=== PATIENT | male | born 1960 | race Two or more races ===

== ENCOUNTER 2025-04-06 15:32 | Inpatient (IN) | payer OTHER, MEDICAID ==
[~2025-04-06] VITALS: Ht 175.3 cm; Wt 73.0 kg
[2025-04-06] MEDS: SODIUM CHLORIDE 0.9% 1,000 ML IV SCH (09:13)
--- NOTE | 2025-04-06 16:40 | ED.PDOC ---
History of Present Illness HPI Comments 64-year-old male presents to the ER in a wheelchair with a chief complaint of flu-like symptoms. Patient has been having shakiness, and chills since yesterday. Denies any other symptoms at this time. Denies fever, N/V/D, SOB, CP. No other associated symptoms, modifiers, recent injuries or sick contacts pr esent at this time. Chief Complaint: Flu like Time Seen by MD: 16:05 Reviewed Notes: Nurses Notes, Medications, Allergies Allergies: Coded Allergies: NO KNOWN ALLERGIES (Unverified , 04/06/25) Information Source: Patient Mode of Arrival: Wheelchair Severity: Moderate Timing: Hours Duration: Since onset, Hours Prehospital treatment: None Past Medical History PAST MEDICAL HISTORY: Denies Surgical History: Denies all surgeries Family History Family History: Reviewed,noncontributory to illness, Unknown Social History Smoker: Non-Smoker Alcohol: Denies ETOH Use Drugs: Denies Drug Use Lives In: Home Constitutional: reports: chills, others (Shakiness); denies: diaphoresis, fatigue, fever, malaise, sweats, weakness EENTM: denies: blurred vision, double vision, ear bleeding, ear discharge, ear drainage, ear pain, ear ringing, eye pain, eye redness, hearing loss, mouth pain, mouth swelling, nasal discharge, nose bleeding, nose congestion, nose pain, photophobia, tearing, throat pain, throat swelling, voice changes, others Respiratory: denies: cough, hemoptysis, orthopnea, SOB at rest, shortness of breath, SOB with excertion, stridor, wheezing, others Cardiovascular: denies: chest pain, dizzy spells, diaphoresis, Dyspnea on exertion, edema, irregular heart beat, left arm pain, lightheadedness, palpitations, PND, syncope, others Gastrointestinal: denies: abdomen distended, abdominal pain, blood streaked bowels, constipated, diarrhea, dysphagia, difficulty swallowing, hematemesis, melena, nausea, poor appetite, poor fluid intake, rectal bleeding, rectal pain, vomiting, others Genitourinary: denies: burning, dysuria, flank pain, frequency, hematuria, incontinence, penile discharge, penile sore, pain, testicle pain, testicle swelling, urgency, others Neurological: denies: dizziness, fainting, headache, left sided numbness, left sided weakness, numbness, paresthesia, pre-existing deficit, right sided numbness, right sided weakness, seizure, speech problems, tingling, tremors, weakness, others Musculoskeletal: denies: back pain, gout, joint pain, joint swelling, muscle pain, muscle stiffness, neck pain, others Integumetry: denies: bruises, change in color, change in hair/nails, dryness, laceration, lesions, lumps, rash, wounds, others Allergic/Immunocompromised: denies: Difficulty Healing, Frequent Infections, Hives, Itching, others Hematologic/Lymphatic: denies: anemia, blood clots, easy bleeding, easy bruising, swollen glands, others Endocrine: denies: excessive hunger, excessive sweating, excessive thirst, excessive urination, flushing, intolerance to cold, intolerance to heat, unexplained weight gain, unexplained weight loss, others Psychiatric: denies: anxiety, bipolar disorder, depression, hopeless, panic disorder, schizophrenia, sleepless, suicidal, others All Other Systems: Reviewed and Negative Physical Exam Exam Comments Ill-appearing General Appearance: No Apparent Distress, Normal HEENT: Normal ENT Inspection, Pharynx Normal, TMs Normal Neck: Full Range of Motion, Non-Tender, Normal, Normal Inspection Respiratory: Chest Non-Tender, Lungs Clear, No Accessory Muscle Use, No Respiratory Distress, Normal Breath Sounds Cardiovascular: No Edema, No JVD, No Murmur, No Gallop, Normal Peripheral Pulses, Regular Rate/Rhythm Breast Exam: Deferred Gastrointestinal: No Organomegaly, Non Tender, No Pulsatile Mass, Normal Bowel Sounds, Soft Genitalia: Deferred Pelvic: Deferred Rectal: Deferred Extremities: No calf tenderness, Normal capillary refill, Normal inspection, Normal range of motion, Non-tender, No pedal edema Musculoskeletal : Apperance: Normal Neurologic: Alert, mandolin repairer II-XII nml as Tested, No Motor Deficits, Normal Affect, Normal Mood, No Sensory Deficits Cerebellar Function: Normal Reflexes: Normal Skin: Dry, Normal Color, Warm Lymphatic: No Adenopathy Was a procedure done? Was a procedure done?: No Differential Dx Considerations may include: ACS, CVA, viral syndrome, electrolyte abnormality, infectious etiology X-Ray, Labs, Meds, VS Vital Signs Date Time Temp Pulse Resp B/P (MAP) Pulse Ox O2 Delivery O2 Flow Rate FiO2 11/16/25 18:17 98.9 50 19 133/77 (95) 99 98.9 04/06/25 15:34 98.0 58 18 147/75 97 98.0 Lab Test 04/06/25 17:34 04/06/25 16:27 Range/Units Troponin I High Sensitivity 35 36 </=54 ng/L White Blood Count 8.6 4.4-10.8 10^3/uL Red Blood Count 3.74 L 4.5-5.90 10^6/uL Hemoglobin 13.1 L 13.5-17.5 g/dL Hematocrit 38.5 L 41.0-53.0 % Mean Corpuscular Volume 103.0 H 80.0-100.0 fL Mean Corpuscular Hemoglobin 35.1 H 28.0-32.0 pg Mean Corpuscular Hemoglobin Concent 34.1 32.0-36.0 g/dL Red Cell Distribution Width 12.8 11.8-14.3 % Platelet Count 357 140-450 10^3/uL Mean Platelet Volume 8.9 6.9-10.8 fL Neutrophils (%) (Auto) 76.4 37.0-80.0 % Lymphocytes (%) (Auto) 17.4 10.0-50.0 % Monocytes (%) (Auto) 5.5 0.0-12.0 % Eosinophils (%) (Auto) 0.1 0.0-7.0 % Basophils (%) (Auto) 0.6 0.0-2.0 % Neutrophils # (Auto) 6.6 1.6-8.6 10 ^3/uL Lymphocytes # (Auto) 1.5 0.4-5.4 10 ^3/uL Monocytes # (Auto) 0.5 0-1.3 10 ^3/uL Eosinophils # (Auto) 0 0-0.8 10 ^3/uL Basophils # (Auto) 0.1 0-0.2 10 ^3/uL Nucleated Red Blood Cells 0.0 % Sodium Level 141 136-145 mmol/L Potassium Level 4.6 3.5-5.1 mmol/L Chloride Level 109 H 98-107 mmol/L Carbon Dioxide Level 20 20-31 mmol/L Anion Gap 12 5-15 Blood Urea Nitrogen 41 H 9-23 mg/dL Creatinine 2.42 H 0.700-1.30 mg/dL Glomerular Filtration Rate Calc 29 >90 mL/min BUN/Creatinine Ratio 16.9 10.0-20.0 Serum Glucose 97 74-106 mg/dL Lactic Acid Level 2.9 *H 0.4-2.0 mmol/L Calcium Level 10.2 8.7-10.4 mg/dL Time of 1ST Reevaluation: 16:35 Reevaluation 1ST: Unchanged Patient Education/Counseling: Diagnosis, Treatment, Prognosis Family Education/Counseling: No Family Present SEPSIS Sepsis Screen Date sepsis recognized/suspect: Apr 06, 2025 Time Sepsis recognized/suspect: 1535 Recent Procedure: No On Antibiotic Therapy: No Respiratory Rate >20: No Heart Rate >90: No Temp<36 C (96.8 F) or >38.3 C: No SBP <90 or MAP <65 mmHG: No New Acute Mental Status Change: No Is the patient on CPAP, BIPAP,: No Physician Orders Urinalysis (04/06/25 16:07) Chest Portable (04/06/25 16:07) Blood Culture (04/06/25 16:07) Troponin-I Hs (04/06/25 19:07) Vital Signs Date Time Temp Pulse Resp B/P (MAP) Pulse Ox O2 Delivery O2 Flow Rate FiO2 04/06/25 18:17 98.9 50 19 133/77 (95) 99 98.9 04/06/25 15:34 98.0 58 18 147/75 97 98.0 Laboratory Tests Test 04/06/25 16:27 Lactic Acid Level 2.9 mmol/L (0.4-2.0) *H White Blood Count 8.6 10^3/uL (4.4-10.8) Departure 1 Departure Time of Disposition: 18:29 (Patient with generalized weakness fatigue concerning for household viral syndrome. Patient also electrolyte abnormalities. Patient with an abnormal chest x-ray. He is also suffering from likely encephalopathy.) Impression: Primary Impression: Encephalopathy Additional Impressions: Generalized weakness Near syncope Disposition: ADMITTED INPATIENT Admit to: Med Surg Condition: Serious Critical Care Note Critical Care Time?: No Stability Stability form required: No I personally scribed for FAITH COBB MD ([email or web address]) on 04/06/25 at 16:40. Electronically submitted by Marc Aranda ([email or web address]). FAITH COBB MD Apr 06, 2025 16:40
--- NOTE | 2025-04-06 16:47 | DVH ---
CHEST RADIOGRAPH REASON FOR EXAM: weakness COMPARISON: None TECHNIQUE: One view of the chest is provided FINDINGS: The cardiomediastinal silhouette is within normal limits for size. There are surgical changes in the mediastinum. There is a curvilinear edge projecting over the right upper lung zone from the superior mediastinum that may be related to prior surgery although ascending aortic aneurysm and mediastinal mass are considerations. There is aortic atherosclerosis. IMPRESSION: There is a curvilinear edge projecting over the right upper lung zone from the superior mediastinum that may be related to prior surgery although ascending aortic aneurysm and mediastinal mass are considerations. Comparison with prior studies may be helpful if available. Consider contrast-enhanced chest CT.
[2025-04-06 17:08] LABS: Nucleated Red Blood Cells % 0.0 %
[2025-04-06 17:09] LABS: Hematocrit 38.5 % (41.0-53.0); Hemoglobin 13.1 g/dL (13.5-17.5); Mean Corpuscular Hemoglobin 35.1 pg (28.0-32.0); Mean Corpuscular Volume 103.0 fL (80.0-100.0)
[2025-04-06 17:13] LABS: Chloride 109 mmol/L (98-107); Potassium 4.6 mmol/L (3.5-5.1); Sodium 141 mmol/L (136-145)
[2025-04-06 17:14] LABS: Anion Gap 12 (5-15); Calcium 10.2 mg/dL (8.7-10.4); Carbon Dioxide 20 mmol/L (20-31)
[2025-04-06 17:19] LABS: BUN/Creatinine Ratio 16.9 (10.0-20.0); Glucose 97 mg/dL (74-106)
[2025-04-06 17:22] LABS: Blood Urea Nitrogen 41 mg/dL (9-23)
[2025-04-06 17:24] LABS: Lactic Acid w/Reflex 2.9 mmol/L (0.4-2.0)
[2025-04-06] MEDS: ACETAMINOPHEN 325 MG TAB PO ONE (18:58)
[2025-04-06] MEDS: ONDANSETRON HCL 4 MG/2 ML VIAL IV ONE (18:58)
[2025-04-06] MEDS: SODIUM CHLORIDE 0.9% 1,000 ML IV ONE (19:00)
--- NOTE | 2025-04-06 19:03 | DVH ---
EXAM: CT HEAD WITHOUT CONTRAST INDICATION: ams TECHNIQUE: CT of the head without intravenous contrast. Radiation Dose : 1. Head: CT Dose: CTDI volume is 53.99 mGy. Dose-length product is 971.88 mGy*cm The dose indicators for CT are the volume Computed Tomography (CT) Dose Index (CTDIvol) and the Dose Length Product (DLP), and are measured in units of mGy and mGy-cm, respectively. These indicators are not patient dose, but values generated from the CT scanner acquisition factors. The report includes radiation exposure data for exposures received during this examination. COMPARISON: None FINDINGS: There is no evidence of acute intracranial hemorrhage, extra-axial collection, mass effect, midline shift, herniation or hydrocephalus. The ventricles, sulci and cisterns are age appropriate. The lawler-white differentiation is intact. Patchy periventricular and subcortical white matter hypoattenuation is nonspecific but may be related to small vessel ischemic disease. Generalized brain atrophy. The visualized paranasal sinuses and mastoid air cells are clear. The surrounding soft tissues and osseous structures are unremarkable. IMPRESSION: No acute intracranial abnormality. Atrophy and chronic small-vessel ischemic changes Radiation optimization: All CT scans at this facility use at least one of these dose optimization techniques: automated exposure control mA and/or kV adjustment per patient size (includes targeted exams where dose is matched to clinical indication) or iterative reconstruction.
--- NOTE | 2025-04-06 19:50 | DVH ---
Procedure: CT CHEST WITHOUT CONTRAST Study Date and Requested Time: 04/06/2025 06:37 PM History: better evaluate xray findings Comparison: Chest radiograph 04/06/2025 Dose: CTDI: 15.64 mGy DLP: 631.71 mGycm Technique: Multiplanar images obtained through the chest without contrast Findings: Thyroid gland is unremarkable. Heart size is within normal limits. The left ventricular wall appears slightly more hyperdense compared to the blood pull which may be seen with anemia. Slight irregularity of the left ventricular wall. Postsurgical changes coronary artery bypass. No aortic aneurysm. Pulmonary trunk is normal in size. No significant mediastinal lymphadenopathy. No pneumothorax, pleural effusion or focal airspace consolidation. Bilateral lower lobe, and bilateral upper lobe atelectasis. The finding on radiograph appears to represent an azygous fissure. Left upper lobe bleb is noted. Soft tissues unremarkable. Diffuse demineralization. Multilevel moderate degenerative changes of the thoracic spine multilevel Anterior bridging osteophytes. Midline sternotomy wires are noted. Cholelithiasis without evidence for acute cholecystitis. Gastric wall thickening. Mild hypoplasia of the left adrenal gland. 2.8 cm left renal hypodense lesion which does not measure simple fluid. Impression: Limited noncontrast imaging. The finding on radiograph appears to represent an azygous fissure There appears to be slight hyperdense appearance of the left ventricular wall compared to the blood pole which may be seen with anemia. Slight irregularity of the left ventricular wall. Contrast-enhanced imaging should be considered for further evaluation. Gastric wall thickening correlate for gastritis/neoplasm. 2.8 cm Left renal hypodense lesion with does not measure simple fluid. Renal ultrasound is recommended for further evaluation. Cholelithiasis without evidence for acute cholecystitis.
--- NOTE | 2025-04-06 20:36 | ECG ---
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
--- NOTE | 2025-04-06 20:46 | DVHHPRES ---
History of Present Illness Resident Creating Document: RIKY WARD RESIDENT History of Present Illness This is a 64-year-old male with past medical history of hypertension, AFib on Eliquis, Parkinson disease presented to the ED via EMS from assisted living facility with a chief complaint of progressive altered mental status prior to this visit . The patient was a poor historian and not able to answer any of the questions, just mentioned he was not feeling well, confused, forgetful that prompted this visit. He denies fever, chills, shortness of breath, chest pain, dizziness, dysuria or any change in bowel and bladder habit. Cardiovascular: AFIB, HTN Past Medical History Hypertension, AFib, Parkinson disease Past Surgical History Denies any surgical history Family History Noncontributory Past Social History Lives in a assisted living facility Nonsmoker, nonalcoholic and never tried any drugs Review of Systems Constitutional: Yes: Weakness; No: Fever, Chills, Sweats, Malaise, Other Eyes: No: Pain, Vision change, Conjunctivae inflammation, Eyelid inflammation, Other, Redness ENT: No: Ear pain, Ear discharge, Nose pain, Nose discharge, Nose congestion, Mouth pain, Mouth swelling, Throat pain, Throat swelling, Other Respiratory: No: Cough, Dry, Shortness of breath, SOB with excertion, Wheezing, Hemoptysis, Pleuritic Pain, Sputum, Wheezing, Other Cardiovascular: No: Chest Pain, Palpitations, Orthopnea, Paroxysmal Noc. Dyspnea, Edema, Lt Headedness, Other Gastrointestinal: No: Nausea, Vomiting, Abdominal Pain, Diarrhea, Constipation, Melena, Hematochezia, Other Genitourinary: No Dysuria, No Frequency, No Incontinence, No Hematuria, No Retention, No Other Musculoskeletal: No: other, neck pain, shoulder pain, arm pain, back pain, hand pain, leg pain, foot pain Skin: No: Rash, Lesions, Jaundice, Bruising, Other Neurological: Weakness; No: Numbness, Incoordination, Change in speech, Confusion, Seizures, Other Allergies: Coded Allergies: NO KNOWN ALLERGIES (Unverified , 04/06/25) Exam Vital Signs Vital Signs Date Time Temp Pulse Resp B/P (MAP) Pulse Ox O2 Delivery O2 Flow Rate FiO2 04/06/25 18:17 98.9 50 19 133/77 (95) 99 98.9 Exam Physical examination: General Appearance: Alert, Oriented X1 to 2, Cooperative, No acute distress HEENT: Atraumatic, PERRLA, EOMI, Mucous membrane moist/pink Respiratory: Clear to auscultation, Normal air movement Cardiovascular: Regular rate, Normal S1, Normal S2, No murmurs, no chest wall tenderness Abdominal: Normal bowel sounds, Soft, No tenderness, No hepatospenomegaly, No masses Extremities: No clubbing, No cyanosis, No edema, Normal pulses, No tenderness/swelling Skin: No rashes, No breakdown, No significant lesion Neuro: wheel chair bound, Normal speech, Strength at 5/5 X4 ext, Normal tone, Sensation intact, Cranial nerves 3-12 NL, Reflexes 2+ Psych/Mental Status: Mental status NL, Mood NL Labs/Xrays Labs Test 04/06/25 19:30 04/06/25 18:21 04/06/25 16:27 Range/Units Lactic Acid Level 1.8 0.4-2.0 mmol/L White Blood Count 8.6 4.4-10.8 10^3/uL Red Blood Count 3.74 L 4.5-5.90 10^6/uL Hemoglobin 13.1 L 13.5-17.5 g/dL Hematocrit 38.5 L 41.0-53.0 % Mean Corpuscular Volume 103.0 H 80.0-100.0 fL Mean Corpuscular Hemoglobin 35.1 H 28.0-32.0 pg Mean Corpuscular Hemoglobin Concent 34.1 32.0-36.0 g/dL Red Cell Distribution Width 12.8 11.8-14.3 % Platelet Count 357 140-450 10^3/uL Mean Platelet Volume 8.9 6.9-10.8 fL Neutrophils (%) (Auto) 76.4 37.0-80.0 % Lymphocytes (%) (Auto) 17.4 10.0-50.0 % Monocytes (%) (Auto) 5.5 0.0-12.0 % Eosinophils (%) (Auto) 0.1 0.0-7.0 % Basophils (%) (Auto) 0.6 0.0-2.0 % Neutrophils # (Auto) 6.6 1.6-8.6 10 ^3/uL Lymphocytes # (Auto) 1.5 0.4-5.4 10 ^3/uL Monocytes # (Auto) 0.5 0-1.3 10 ^3/uL Eosinophils # (Auto) 0 0-0.8 10 ^3/uL Basophils # (Auto) 0.1 0-0.2 10 ^3/uL Nucleated Red Blood Cells 0.0 % Sodium Level 141 136-145 mmol/L Potassium Level 4.6 3.5-5.1 mmol/L Chloride Level 109 H 98-107 mmol/L Carbon Dioxide Level 20 20-31 mmol/L Anion Gap 12 5-15 Blood Urea Nitrogen 41 H 9-23 mg/dL Creatinine 2.42 H 0.700-1.30 mg/dL Glomerular Filtration Rate Calc 29 >90 mL/min BUN/Creatinine Ratio 16.9 10.0-20.0 Serum Glucose 97 74-106 mg/dL Calcium Level 10.2 8.7-10.4 mg/dL SEPSIS Sepsis Screen Date sepsis recognized/suspect: Apr 06, 2025 Time Sepsis recognized/suspect: 1535 Recent Procedure: No On Antibiotic Therapy: No Respiratory Rate >20: No Heart Rate >90: No Temp<36 C (96.8 F) or >38.3 C: No SBP <90 or MAP <65 mmHG: No New Acute Mental Status Change: No Is the patient on CPAP, BIPAP,: No Physician Orders Urinalysis (04/06/25 16:07) Chest Portable (04/06/25 16:07) Blood Culture (04/06/25 16:07) Troponin-I Hs (04/06/25 19:07) Chest Without Contrast (04/06/25 18:32) Head Without Contrast (04/06/25 18:32) Admit (04/06/25 20:38) Cardiac Diet-2gna,Lofat,Lochol (04/07/25 Breakfast) Code Status (04/06/25 20:40) Urinalysis (04/06/25 20:40) Drug Screen (04/06/25 20:40) Hepatic Panel (04/06/25 20:40) Kidney (04/06/25 20:40) Urine Creatinine (04/06/25 20:40) Urine Sodium (04/06/25 20:40) Urine Protein/Creatinine Ratio (04/06/25 ) Communication Order (04/06/25 20:40) Vital Signs Date Time Temp Pulse Resp B/P (MAP) Pulse Ox O2 Delivery O2 Flow Rate FiO2 04/06/25 18:17 98.9 50 19 133/77 (95) 99 98.9 04/06/25 15:34 98.0 58 18 147/75 97 98.0 Laboratory Tests Test 04/06/25 16:27 04/06/25 18:21 Lactic Acid Level 2.9 mmol/L (0.4-2.0) *H 1.8 mmol/L (0.4-2.0) White Blood Count 8.6 10^3/uL (4.4-10.8) Medications Medications Dose Ordered Sig/Lex Route Start Time Stop Time Status Last Admin Dose Admin Acetaminophen 650 mg ONCE ONCE PO 04/06/25 18:45 04/06/25 18:46 DC 04/06/25 18:58 650 MG Ondansetron HCl 4 mg ONCE ONCE IV 04/06/25 18:45 04/06/25 18:46 DC 04/06/25 18:58 4 MG Sodium Chloride 1,000 ml @ 1,000 mls/hr Q1H ONCE IV 04/06/25 18:45 04/06/25 19:44 DC 04/06/25 19:00 1,000 MLS/HR Assessment/Plan Assessment/Plan Assessment and plan: # Acute metabolic/toxic encephalopathy likely secondary to sepsis - CT head without contrast demonstrated no acute intracranial abnormality, chron ic microvascular ischemic changes - IV NS at 75 mL/hours daily - IV ceftriaxone 1 g daily - Lactic acid trends were 2.9>1.8 - pending blood culture, UA, UDS, urine bacterial culture # Possible infectious colitis # Rule out gastric/rectal malignancy # Cholelithiasis - CT abdomen pelvis without contrast demonstrated mild thickening of the distal rectum, gastric wall and cholelithiasis - clear liquid diet - IV ceftriaxone 1 g daily and IV metronidazole 500 mg t.i.d. - pending CEA and CA 19- 9 # Hypertensive heart disease with possible chronic systolic/diastolic heart failure # Right-sided pleural effusion # chronic atrial fibrillation with secondary hypercoagulable state - Travis Vasc score 3 - amlodipine 10 mg p.o. daily - Lovenox 1 milligram/kg 12 hourly # IRASEMA likely hemodynamically mediated/VMN - IV NS 75 mL/hours daily - Pending urine sodium, creatinine and protein creatinine ratio # DVT prophylaxis - patient is on Lovenox Goal of care and code status discussed with the patient for more than 20 minutes full code Plan discussed with Dr. Lanza Plan discussed with: Patient, Other (RN) My Orders Orders - RIKY WARD Procedure Category Date Status Time Admit ADMIT 04/06/25 Transmitted 20:38 Cardiac DIET 04/07/25 Verified Diet-2gna,Lofat,Lochol Breakfast Code Status CODE 04/06/25 Verified 20:40 Urinalysis LAB 04/06/25 Verified 20:40 Drug Screen LAB 04/06/25 Verified 20:40 Hepatic Panel LAB 04/06/25 Verified 20:40 Kidney US 04/06/25 Verified 20:40 Urine Creatinine LAB 04/06/25 Verified 20:40 Urine Sodium LAB 04/06/25 Verified 20:40 Urine LAB 04/06/25 Verified Protein/Creatinine Communication Order ORDERS 04/06/25 Verified 20:40 Date of Service: Apr 06, 2025 Billing Provider: ANA LANZA MD Common Visit Codes: 70370-GSRVRSO INP/OBS CARE (HIGH) Secondary Visit Codes: 75982-[id number] CARE PLAN 30 MINUTES RIKY WARD Apr 06, 2025 20:46
[2025-04-06 20:52] VITALS: PULSE 55; RESP 19; O2SAT 100
[2025-04-06 21:07] LABS: Alanine Aminotransferase 22.0 U/L (7-40); Albumin 3.6 g/dL (3.2-4.8); Alkaline Phosphatase 65.0 U/L (46-116); Bilirubin, Direct 0.2 mg/dL (<0.3); Bilirubin, Total 0.6 mg/dL (0.2-1.0); Total Protein 6.4 g/dL (5.7-8.2)
[2025-04-06 21:18] LABS: INR 1.03 (0.9-1.15); Partial Thromboplastin Time 26.6 SEC (24.5-34.5); Prothrombin Time 10.9 sec (9.3-11.8)
--- NOTE | 2025-04-06 22:00 | DVH ---
Exam: CT CT AB PEL WO CON-NO ORAL OR IV History: abdominal pain Comparison Study: None TECHNIQUE: Multidetector CT of the abdomen AND PELVIS without IV contrast. Axial, coronal and sagittal multiplanar reformats were obtained from the axial data set by the technologist. Radiation Dose Information: CT Dose: CTDI volume is 8.25 mGy. Dose-length product is 442.38 mGy*cm FINDINGS: Bibasilar atelectasis. Partially visualized heart is unremarkable. Subtle micronodular contour of the liver with recanalization of the umbilical vein which may be seen with cirrhosis. Spleen, pancreas and adrenal glands are unremarkable. Cholelithiasis with no CT evidence of acute cholecystitis. Mild atrophy of bilateral kidneys. 2.1 cm Right with 2.3 cm left renal cysts. Additional subcentimeter hypodense bilateral renal lesions are noted that are too small to characterize. No renal calculi or hydro nephrosis bilaterally. Bilateral ureters unremarkable. Mild wall thickening of the Urinary bladder. Prostate is unremarkable. Gastric wall thickening. Small bowel loops unremarkable. Appendix is unremarkable. Small to moderate amount of fecal material within the colon. Sigmoid diverticulosis without diverticulitis. Distal rectal wall thickening. No evidence of intraperitoneal free air or free fluid. No evidence of aortic aneurysm. Moderate to heavy atherosclerotic calcification of the aorta and bilateral iliacs. No significant lymphadenopathy. Tiny fat containing umbilical hernia. Minimal body wall edema. No evidence of acute osseous abnormalities. Multilevel severe degenerative changes of the lumbar spine. Diffuse demineralization. IMPRESSION: Mild distal rectal wall thickening which may be due to inadequate distention neoplasm not excluded. Gastric wall thickening. Correlate for inadequate distention with gastritis /neoplasm not completely excluded. Minimal wall thickening of the urinary bladder. Correlation with urinalysis is recommended for cystitis. Cholelithiasis with no CT evidence of acute cholecystitis. Bilateral renal cysts with additional subcentimeter hypodense bilateral renal lesions that are too small to characterize.
--- NOTE | 2025-04-06 22:22 | DVH ---
INDICATION: Hypodense lesion in the kidney TECHNIQUE: Multiple real-time sonographic images of the abdomen were obtained. COMPARISON: None FINDINGS: The liver is homogenous in echogenicity. The liver measures INDICATION: Hypodense lesion in the kidney TECHNIQUE: Multiple real-time sonographic images of the kidneys and bladder were obtained. COMPARISON: None FINDINGS: The right kidney measures 8.8 cm in length, which is normal in size. Right kidney appears echogenic and atrophic. There is a small cortical cyst measuring 1.9 x 2.1 x 2.1 cm The left kidney left kidney obscured by bowel gas No large intraluminal masses are seen in the bladder. Prior to voiding the bladder volume measures volume 193.7 mL. Bladder wall measures 3.7 mL. Right and left ureteral jets were visualized. IMPRESSION: 1. Right kidney measures 8.8 cm and is atrophic with increased cortical echogenicity. 2. Left kidney was not visualized because of bowel gas. 3. Prevoid bladder volume was 193.7 mL. No postvoid bladder measurements were received. 4. Right and left ureteral jets were visualized 5. Small 2.1 cm right cortical cyst
[2025-04-06] MEDS: ENOXAPARIN SOD 100 MG/1 ML SYRINGE SC ONE (22:39)
[2025-04-07 00:03] LABS: COVID19 ANTIGEN SOFIA FIA NEGATIVE (NEGATIVE)
[2025-04-07] MEDS: ENOXAPARIN SOD 100 MG/1 ML SYRINGE SC SCH (06:45)
[2025-04-07] MEDS: ENOXAPARIN SOD 80 MG/0.8ML SYRINGE SC SCH (10:16)
--- NOTE | 2025-04-07 15:16 | DVHPN2 ---
Subjective Patient denies any symptoms at this time Reviewed: Care Plan, H&P, Labs, Medications Changes from previous H/P or p: No Changes General: Per HPI Eyes: No Pain, No Vision change, No Conjunctivae inflammation, No Eyelid inflammation, No Other, No Redness ENT: No Ear pain, No Ear discharge, No Nose pain, No Nose discharge, No Nose congestion, No Mouth pain, No Mouth swelling, No Throat pain, No Throat swelling, No Other Cardiovascular: No Chest Pain, No Palpitations, No Orthopnea, No Paroxysmal Noc. Dyspnea, No Edema, No Lt Headedness, No Other Respiratory: No Cough, No Dry, No Shortness of breath, No SOB with excertion, No Wheezing, No Hemoptysis, No Pleuritic Pain, No Sputum, No Other Gastrointestinal: No Nausea, No Vomiting, No Abdominal Pain, No Diarrhea, No Constipation, No Melena, No Hematochezia, No Other Genitourinary: No Dysuria, No Frequency, No Incontinence, No Hematuria, No Retention, No Other Musculoskeletal: No other, No neck pain, No shoulder pain, No arm pain, No back pain, No hand pain, No leg pain, No foot pain Skin: No Rash, No Lesions, No Jaundice, No Bruising, No Other Objective Vitals Vital Signs Date Time Temp Pulse Resp B/P (MAP) Pulse Ox O2 Delivery O2 Flow Rate FiO2 04/07/25 13:21 99.5 70 18 140/68 (92) 99 99.5 04/06/25 20:52 Room Air* 0 21 Intake/Output Intake and Output 04/07/25 07:00 Intake Total 1150 ml Balance 1150 ml Intake IV Total 1150 ml General Appearance: Alert, Oriented X3, Cooperative, No acute distress HEENT: Atraumatic, PERRLA Cardiovascular: Normal S1, Normal S2 Musculoskeletal: Normal sensory function, Normal motor function Skin: Dry, Intact Psych/Mental Status: Mental status NL, Mood NL Medications Current Medications Medications Dose Ordered Sig/Lex Route Start Time Stop Time Status Last Admin Dose Admin Sodium Chloride 1,000 ml @ 75 mls/hr [id number] IV 04/06/25 21:00 04/06/25 09:13 75 MLS/HR Ceftriaxone Sodium 50 ml @ 100 mls/hr DAILY@2100 IV 04/07/25 21:00 Amlodipine Besylate 10 mg DAILY PO 04/07/25 10:00 04/07/25 06:45 10 MG Metronidazole 100 ml @ 100 mls/hr Q8HR IV 04/07/25 06:00 04/07/25 14:03 100 MLS/HR Enoxaparin Sodium 80 mg DAILY SC 04/07/25 10:00 04/07/25 10:16 80 MG Laboratory Results Laboratory Tests 04/06/25 16: Chemistry Test 04/06/25 16:27 04/06/25 19:30 Calcium Level 10.2 mg/dL (8.7-10.4) Albumin 3.6 g/dL (3.2-4.8) Total Protein 6.4 g/dL (5.7-8.2) Coagulation Test 04/06/25 19:30 Prothrombin Time 10.9 sec (9.3-11.8) Prothrombin Time INR 1.03 (0.9-1.15) Activated Partial Thromboplast Time 26.6 SEC (24.5-34.5) Cardiac Markers Test 04/06/25 16:27 B-Type Natriuretic Peptide 388.15 pg/mL (0-100) LFT Test 04/06/25 19:30 Alanine Aminotransferase (ALT) 22 U/L (7-40) Alkaline Phosphatase 65 U/L (46-116) Aspartate Amino Transferase (AST) 28 U/L (13-40) Direct Bilirubin 0.2 mg/dL (<0.3) Total Bilirubin 0.6 mg/dL (0.2-1.0) HgA1c, TSH Test 04/06/25 16:27 04/06/25 19:30 Hemoglobin A1c 5.0 % A1C (<5.7) Thyroid Stimulating Hormone (TSH) 1.80 uIU/mL (0.55-4.78) Labs and/or images reviewed: Labs reviewed by me, Image(s) reviewed by me Assessment/Plan Assessment/Plan Impression: -questionable gastroenteritis -? Acute kidney injury, vasomotor nephropathy -history of coronary artery disease -lactic acidosis -nicotine dependence -metabolic encephalopathy Plan: -continue IV hydration -continue IV Flagyl -continue clear liquid diet -kidney ultrasound -repeat labs in a.m. Total time spent with patient discussing and formulating plan of care: 35 minutes. This medical document was created using an electronic medical record system with Dragon computerized dictation system. Although this document has been carefully reviewed, there may still be some phonetic and typographical errors. These areas are purely typographical due to imperfections of the software programs, and do not reflect any compromise in the patient's medical care. Plan discussed with: Patient, Other (RN) My Orders Orders - LOIS PAL NP Procedure Category Date Status Time Basic Metabolic Panel LAB 04/08/25 Verified 04:00 Complete Blood Count LAB 04/08/25 Verified 04:00 Date of Service: Apr 07, 2025 Billing Provider: LOIS PAL NP Common Visit Codes: [id number] INP/OBS CARE(HIGH) LOIS PAL NP Apr 07, 2025 15:16
[2025-04-07 21:00] VITALS: BP 130/86; PULSE 60; RESP 17; TEMP 97; O2SAT 98
[2025-04-08] VITALS (7 sets, daily range): BP systolic 105–145; BP diastolic 46–85; PULSE 58–77; RESP 16–18; TEMP 97.5–98.4; O2SAT 94–99
[2025-04-08] MEDS ORDERED: QUET100T47 PO (02:52)
[2025-04-08] MEDS ORDERED: METO25TA5 PO (02:52)
[2025-04-08] MEDS ORDERED: TAMS0.4C39 PO (02:52)
[2025-04-08] MEDS ORDERED: ACET-1881 PO (02:52)
[2025-04-08] MEDS ORDERED: DICL1GEL EX (02:52)
[2025-04-08] MEDS ORDERED: LOSA-533 PO (02:52)
[2025-04-08] MEDS ORDERED: MULTLIQ36 OR (02:52)
[2025-04-08] MEDS ORDERED: LIDO5CRE14 EX (02:52)
[2025-04-08] MEDS ORDERED: GABA-1250 PO (02:52)
[2025-04-08] MEDS ORDERED: DULO60CA41 PO (02:52)
[2025-04-08] MEDS ORDERED: FOLI-119 PO (02:52)
[2025-04-08] MEDS ORDERED: LAMO100T44 PO (02:52)
[2025-04-08] MEDS ORDERED: FERR325T20 PO (02:52)
[2025-04-08] MEDS ORDERED: APIX5TAB PO (02:52)
[2025-04-08] MEDS ORDERED: OMEP20TA PO (02:52)
[2025-04-08] MEDS ORDERED: ATOR40TA52 PO (02:52)
[2025-04-08] MEDS ORDERED: INFLUENZA TRIVALENT 2024-2025 0.5 ML INJ IM ONE (04:30)
[2025-04-08 07:30] LABS: Hematocrit 32.5 % (41.0-53.0); Mean Corpuscular Hemoglobin 35.0 pg (28.0-32.0); Nucleated Red Blood Cells % 0.1 %
[2025-04-08 07:32] LABS: Hemoglobin 10.9 g/dL (13.5-17.5); Mean Corpuscular Volume 103.8 fL (80.0-100.0)
[2025-04-08 07:50] LABS: Anion Gap 12 (5-15); Carbon Dioxide 20 mmol/L (20-31); Potassium 4.4 mmol/L (3.5-5.1); Sodium 142 mmol/L (136-145)
[2025-04-08 07:51] LABS: Calcium 9.1 mg/dL (8.7-10.4)
[2025-04-08 07:53] LABS: Chloride 110 mmol/L (98-107)
[2025-04-08 07:56] LABS: BUN/Creatinine Ratio 14.8 (10.0-20.0)
[2025-04-08 08:00] LABS: Blood Urea Nitrogen 33 mg/dL (9-23); Glucose 61 mg/dL (74-106)
--- NOTE | 2025-04-08 12:24 | DVHPN2 ---
Subjective Patient denies any symptoms at this time Reviewed: Care Plan, H&P, Labs, Medications Changes from previous H/P or p: No Changes General: Per HPI Eyes: No Pain, No Vision change, No Conjunctivae inflammation, No Eyelid inflammation, No Other, No Redness ENT: No Ear pain, No Ear discharge, No Nose pain, No Nose discharge, No Nose congestion, No Mouth pain, No Mouth swelling, No Throat pain, No Throat swelling, No Other Cardiovascular: No Chest Pain, No Palpitations, No Orthopnea, No Paroxysmal Noc. Dyspnea, No Edema, No Lt Headedness, No Other Respiratory: No Cough, No Dry, No Shortness of breath, No SOB with excertion, No Wheezing, No Hemoptysis, No Pleuritic Pain, No Sputum, No Other Gastrointestinal: No Nausea, No Vomiting, No Abdominal Pain, No Diarrhea, No Constipation, No Melena, No Hematochezia, No Other Genitourinary: No Dysuria, No Frequency, No Incontinence, No Hematuria, No Retention, No Other Musculoskeletal: No other, No neck pain, No shoulder pain, No arm pain, No back pain, No hand pain, No leg pain, No foot pain Skin: No Rash, No Lesions, No Jaundice, No Bruising, No Other Objective Vitals Vital Signs Date Time Temp Pulse Resp B/P (MAP) Pulse Ox O2 Delivery O2 Flow Rate FiO2 04/08/25 10:06 127/76 04/08/25 09:00 98.3 60 16 99 98.3 04/07/25 20:00 Room Air* 0 21 Intake/Output Intake and Output 04/08/25 07:00 Intake Total 650 ml Output Total 1050 ml Balance -400 ml Intake Oral 500 ml IV Total 150 ml Output Urine Total 1050 ml General Appearance: Alert, Oriented X3, Cooperative, No acute distress HEENT: Atraumatic, PERRLA Cardiovascular: Normal S1, Normal S2 Musculoskeletal: Normal sensory function, Normal motor function Skin: Dry, Intact Psych/Mental Status: Mental status NL, Mood NL Medications Current Medications Medications Dose Ordered Sig/Lex Route Start Time Stop Time Status Last Admin Dose Admin Sodium Chloride 1,000 ml @ 75 mls/hr [id number] IV 04/06/25 21:00 04/06/25 09:13 75 MLS/HR Ceftriaxone Sodium 50 ml @ 100 mls/hr DAILY@2100 IV 04/07/25 21:00 04/07/25 20:38 100 MLS/HR Amlodipine Besylate 10 mg DAILY PO 04/07/25 10:00 04/08/25 10:06 10 MG Metronidazole 100 ml @ 100 mls/hr Q8HR IV 04/07/25 06:00 04/08/25 05:34 100 MLS/HR Enoxaparin Sodium 80 mg DAILY SC 04/07/25 10:00 04/08/25 10:05 80 MG Laboratory Results Laboratory Tests 04/08/25 04:54 Chemistry Test 04/08/25 04:54 Calcium Level 9.1 mg/dL (8.7-10.4) Microbiology Microbiology Date/Time Source Procedure Growth Status 04/06/25 16:34 Blood Blood Culture - Preliminary NO GROWTH AFTER 24 HOURS OF INCUBATION. Resulted Labs and/or images reviewed: Labs reviewed by me, Image(s) reviewed by me Assessment/Plan Assessment/Plan Impression: -questionable gastroenteritis -? Acute kidney injury, vasomotor nephropathy -history of coronary artery disease -lactic acidosis -nicotine dependence -metabolic encephalopathy Plan: Events: No events overnight. -continue IV hydration -continue IV Flagyl -advanced to full liquid diet -repeat labs in a.m. Total time spent with patient discussing and formulating plan of care: 35 minutes. This medical document was created using an electronic medical record system with [employer] dictation system. Although this document has been carefully reviewed, there may still be some phonetic and typographical errors. These areas are purely typographical due to imperfections of the software programs, and do not reflect any compromise in the patient's medical care. Plan discussed with: Patient, Other (RN) My Orders Orders - LOIS PAL NP Procedure Category Date Status Time Urine Bacterial SHAZIA 04/08/25 Logged Culture 11:14 Date of Service: Apr 08, 2025 Billing Provider: LOIS PAL NP Common Visit Codes: [id number] INP/OBS CARE(HIGH) LOIS PAL NP Apr 08, 2025 12:24
[2025-04-08 18:08] LABS: Protein, Urine 149.5 mg/dL (1-14)
[2025-04-08 18:42] LABS: Amphetamine Screen, Urine Neg (NEGATIVE); Barbiturate Scree,Urine Neg (NEGATIVE); Benzodiazephine Screen, Urine Neg (NEGATIVE); Cannabinoid Screen, Urine Neg (NEGATIVE); Cocaine Screen, Urine Neg (NEGATIVE); Opiate Scree,Urine Neg (NEGATIVE); Phencyclidine Screen, Urine Neg (NEGATIVE)
[2025-04-08 18:45] LABS: Urine Protein, UAD 2+ (Negative)
[2025-04-09] VITALS (9 sets, daily range): BP systolic 127–152; BP diastolic 67–77; PULSE 51–98; RESP 14–18; TEMP 98–98.9; O2SAT 94–99
[2025-04-09] MEDS ORDERED: CEFD300C2 PO (10:18)
--- NOTE | 2025-04-09 10:22 | DVHDS2 ---
Discharge Summary Date of Admission Apr 06, 2025 at 20:38 Date of Discharge: Apr 09, 2025 Admitting Diagnosis Acute metabolic encephalopathy Labs/Diagnostic Data: Laboratory Results Test 04/08/25 12:52 04/08/25 04:54 04/06/25 22:43 04/06/25 22:29 Urine Color Yellow (Yellow) Urine Clarity Clear (Clear) Urine pH 6.5 (5.0-9.0) Urine Specific [place] 1.015 (1.001-1.035) Urine Protein 2+ (Negative) Urine Ketones Trace (Negative) Urine Blood Negative /uL (Negative) Urine Nitrite Negative (Negative) Urine Bilirubin Negative (Negative) Urine Urobilinogen Normal mg/dL (Negative) Urine Leukocyte Esterase Negative /uL (Negative) Urine RBC 1 /hpf (0 - 3) Urine Microscopic WBC < 1 /HPF (0-3) Urine Squamous Epithelial Cells Few /hpf (<5) Urine Bacteria None seen /hpf (None Seen) Urine Creatinine 80.01 mg/dL (30.0-125.0) Urine Protein/Creatinine Ratio 1.87 Urine Sodium 119 mmol/L (40-220) Urine Glucose Normal mg/dL (Normal) Urine Total Protein 149.5 mg/dL (1-14) Urine Opiates Screen Neg (NEGATIVE) Urine Fentanyl Screen Neg (NEGATIVE) Urine Barbiturates Screen Neg (NEGATIVE) Urine Phencyclidine Screen Neg (NEGATIVE) Urine Amphetamines Screen Neg (NEGATIVE) Urine Benzodiazepines Screen Neg (NEGATIVE) Urine Cocaine Screen Neg (NEGATIVE) Urine Cannabinoids Screen Neg (NEGATIVE) White Blood Count 8.3 10^3/uL (4.4-10.8) Red Blood Count 3.13 10^6/uL (4.5-5.90) Hemoglobin 10.9 g/dL (13.5-17.5) Hematocrit 32.5 % (41.0-53.0) Mean Corpuscular Volume 103.8 fL (80.0-100.0) Mean Corpuscular Hemoglobin 35.0 pg (28.0-32.0) Mean Corpuscular Hemoglobin Concent 33.7 g/dL (32.0-36.0) Red Cell Distribution Width 12.6 % (11.8-14.3) Platelet Count 281 10^3/uL (140-450) Mean Platelet Volume 9.2 fL (6.9-10.8) Neutrophils (%) (Auto) 69.5 % (37.0-80.0) Lymphocytes (%) (Auto) 21.0 % (10.0-50.0) Monocytes (%) (Auto) 8.2 % (0.0-12.0) Eosinophils (%) (Auto) 0.7 % (0.0-7.0) Basophils (%) (Auto) 0.6 % (0.0-2.0) Neutrophils # (Auto) 5.7 10 ^3/uL (1.6-8.6) Lymphocytes # (Auto) 1.7 10 ^3/uL (0.4-5.4) Monocytes # (Auto) 0.7 10 ^3/uL (0-1.3) Eosinophils # (Auto) 0.1 10 ^3/uL (0-0.8) Basophils # (Auto) 0 10 ^3/uL (0-0.2) Nucleated Red Blood Cells 0.1 % Sodium Level 142 mmol/L (136-145) Potassium Level 4.4 mmol/L (3.5-5.1) Chloride Level 110 mmol/L (98-107) Carbon Dioxide Level 20 mmol/L (20-31) Anion Gap 12 (5-15) Blood Urea Nitrogen 33 mg/dL (9-23) Creatinine 2.23 mg/dL (0.700-1.30) Glomerular Filtration Rate Calc 32 mL/min (>90) BUN/Creatinine Ratio 14.8 (10.0-20.0) Serum Glucose 61 mg/dL (74-106) Calcium Level 9.1 mg/dL (8.7-10.4) Ammonia < 10 umol/L (11-32) Influenza Type A Antigen Negative (Negative) Influenza Type B Antigen Negative (Negative) SARS-CoV-2 Antigen (Rapid) Negative (NEGATIVE) Test 04/06/25 19:30 04/06/25 18:21 04/06/25 16:34 04/06/25 16:27 Prothrombin Time 10.9 sec (9.3-11.8) Prothrombin Time INR 1.03 (0.9-1.15) Activated Partial Thromboplast Time 26.6 SEC (24.5-34.5) Total Bilirubin 0.6 mg/dL (0.2-1.0) Direct Bilirubin 0.2 mg/dL (<0.3) Aspartate Amino Transferase (AST) 28 U/L (13-40) Alanine Aminotransferase (ALT) 22 U/L (7-40) Alkaline Phosphatase 65 U/L (46-116) Troponin I High Sensitivity 33 ng/L (</=54) Total Protein 6.4 g/dL (5.7-8.2) Albumin 3.6 g/dL (3.2-4.8) Thyroid Stimulating Hormone (TSH) 1.80 uIU/mL (0.55-4.78) Lactic Acid Level 1.8 mmol/L (0.4-2.0) Carcinoembryonic Antigen 2.49 ng/mL (<=5.0) CA 19-9 Antigen 13 U/mL (0-35) Vitamin B12 Level 482 pg/mL (211-911) Vitamin D 25-Hydroxy 54.8 ng/mL (30.0-100) Hemoglobin A1c 5.0 % A1C (<5.7) B-Type Natriuretic Peptide 388.15 pg/mL (0-100) Plasma/Serum Blood Alcohol < 3.0 mg/dL (<10) Other Laboratory Tests 04/08/25 04:54 Brief Hx & Hospital Course: History of Present Illness This is a 64-year-old male with past medical history of hypertension, AFib on Eliquis, Parkinson disease presented to the ED via EMS from assisted living facility with a chief complaint of progressive altered mental status prior to this visit . The patient was a poor historian and not able to answer any of the questions, just mentioned he was not feeling well, confused, forgetful that prompted this visit. He denies fever, chills, shortness of breath, chest pain, dizziness, dysuria or any change in bowel and bladder habit. Course of hospitalization: Patient was started on empiric antibiotic therapy, gentle IV hydration. Patient had CT scan of the abdomen and pelvis. Blood and urine cultures negative at this time. Patient has been afebrile. No leukocytosis was noted. Patient was agreeable to be discharged home and continued on antibiotic therapy with cefdinir 300 mg p.o. b.i.d. for additional five days. He is instructed to continue all home medications and follow up with his PCP, Dr. Cortes in 1-2 weeks. Physical examination General: Alert and Oriented x3. No acute distress. Well-nourished. Eyes: EOMI. Anicteric. HENT: Moist mucous membranes. Lungs: Clear to auscultation bilaterally. No accessory muscle use. Cardiovascular: Regular rate and rhythm. No murmur. No JVD. Abdomen: Soft, non-tender and non-distended. No palpable masses. Extremities: No edema. Non-tender. Skin: No rashes or lesions. Warm. Neurologic: No focal neurological deficits. CN II-XII grossly intact, but not individually tested. Psychiatric: Cooperative. Appropriate mood and affect. Total time spent with patient discussing and formulating plan of care: 35 minutes. This medical document was created using an electronic medical record system with [employer] dictation system. Although this document has been carefully reviewed, there may still be some phonetic and typographical errors. These areas are purely typographical due to imperfections of the software programs, and do not reflect any compromise in the patient's medical care. Condition at Discharge: Fair Final Diagnosis/Problems List Complicated cystitis questionable gastroenteritis - probable Acute kidney injury, vasomotor nephropathy -CKD stage 3b -history of coronary artery disease -lactic acidosis -nicotine dependence -metabolic encephalopathy Discharge Disposition: Home Discharge Instruct/Medications Diet: Cardiac 2g Na,low cholest Activity: Light activity Follow Up/Referral: Follow up with Dr. Cortes at [facility] Medications: Continue all home medications Cefdinir 300mg po bid x 5 days Scheduled Apixaban Base (Eliquis), 5 MG PO BID, (Reported) Atorvastatin Calcium (Atorvastatin Calcium), 1 TAB PO DAILY, (Reported) Cefdinir (Cefdinir), 1 CAP PO BID Duloxetine Hcl (Cymbalta), 1 CAP PO DAILY, (Reported) Folic Acid (Folic Acid), 1 MG PO DAILY, (Reported) Losartan Potassium (Losartan Potassium), 25 MG PO DAILY, (Reported) Tamsulosin Hcl (Tamsulosin Hcl), 0.4 MG PO QPM, (Reported) Scheduled PRN Acetaminophen (Acetaminophen), 500 MG PO Q4HP PRN for MILD PAIN, (Reported) Miscellaneous Medications Diclofenac Sodium (Topical) (Eq Arthritis Pain Relieve), 1 % EX, (Reported) Ferrous Sulfate (Ferosul), 325 MG PO, (Reported) Gabapentin (Gabapentin), 300 MG PO, (Reported) Lamotrigine (Lamotrigine), 50 MG PO, (Reported) Lidocaine (Anorectal) (Lidocaine 5%), 5 % EX, (Reported) Metoprolol Tartrate (Metoprolol Tartrate), 25 MG PO, (Reported) Multiple Vitamins W/ Minerals (Multivitamin), 1 OR, (Reported) Omeprazole (Gnp Omeprazole), 20 MG PO, (Reported) Quetiapine Fumerate (Quetiapine Fumarate), 50 MG PO, (Reported) 36 Discharge Statement: "Patient was advised to return to the ER or call 911 if any headaches, dizziness, shortness of breath, chest pain, abdominal pain, bleeding, fevers, or worsening of medical condition. Patient was counseled about treatment plan, medications, possible side effects, patientverbalized understanding. All questions were answered to the best of my ability. This discharge took greater then 30 minutes in planning, reviewing documentation, counseling the patient, and discussing with other team members." ASSESSMENT ASSESSMENT Assessment Complicated cystitis Date of Service: Apr 09, 2025 Billing Provider: LOIS PAL NP Common Visit Codes: [id number] DISCH DAY >30min LOIS PAL NP Apr 09, 2025 10:22
--- NOTE | 2025-04-09 11:18 | DVHSR ---
APPROVED REPORT EXAM: Two-dimensional and M-mode echocardiogram with Doppler and color Doppler. Blood Pressure: 141/70 mmHg INDICATION Dyspnea Surgery/Intervention CABG: RISK FACTORS Height: 5'9", Weight: 161 DIMENSIONS LVDd 5.3 (3.8-5.7cm) LA (2D) 4.8 (1.9-4.0cm) Aortic Root 3.0 (2.0-3.7cm) LVDs 4.0 (2.5-4.0cm) LA (MM) (1.9-4.0cm) Aortic Cusp Exc 1.9 (1.5-2.0cm) EF (%) 48.0 (55-70%) Rt. Atrium 4.5 (1.9-4.0cm) Asc. Aorta 3.5 cm IVSd 1.4 (0.7-1.1cm) RV (D) (1.8-2.4cm) PWd 0.9 (0.7-1.1cm) Mitral Valve Mitral Mitral Stenosis E wave 0.44m/s MV Mean GR. mmHg A wave 0.81m/s MV Peak GR. mmHg E/A ratio 0.5 2D MVA cm2 DECEL Time 243ms PRESS 1/2 Time ms Aortic Valve Aortic Valve Aortic Stenosis V1 0.79m/s AO Mean GR. 5mmHg V2 1.50m/s AO Peak GR. 9mmHg LVOT Diameter 2.5 (1.8-2.4cm) Doppler VINCE 2.58cm2 Pulmonic Valve V2 0.78m/s Other Information Quality : Technically Limited Rhythm : Technically limited study due to body habitus. Conclusion LV EF IS 55% AND IS NORMAL NORMAL VALVES NORMAL RV FUNCTION NO EFFUSION
[2025-04-10] VITALS (7 sets, daily range): BP systolic 102–141; BP diastolic 54–88; PULSE 53–85; RESP 17–18; TEMP 97.2–98.4; O2SAT 95–100
[2025-04-10] MEDS: PNEUMOCOCCAL VACC POLYS 25 MCG/0.5 ML VIAL IM ONE (09:23)
[2025-04-10] MEDS: ENOXAPARIN SOD 80 MG/0.8ML SYRINGE SC SCH (09:23)
--- NOTE | 2025-04-10 09:54 | DVHPN2 ---
Subjective Patient denies any symptoms at this time Reviewed: Care Plan, H&P, Labs, Medications Changes from previous H/P or p: No Changes General: Per HPI Eyes: No Pain, No Vision change, No Conjunctivae inflammation, No Eyelid inflammation, No Other, No Redness ENT: No Ear pain, No Ear discharge, No Nose pain, No Nose discharge, No Nose congestion, No Mouth pain, No Mouth swelling, No Throat pain, No Throat swelling, No Other Cardiovascular: No Chest Pain, No Palpitations, No Orthopnea, No Paroxysmal Noc. Dyspnea, No Edema, No Lt Headedness, No Other Respiratory: No Cough, No Dry, No Shortness of breath, No SOB with excertion, No Wheezing, No Hemoptysis, No Pleuritic Pain, No Sputum, No Other Gastrointestinal: No Nausea, No Vomiting, No Abdominal Pain, No Diarrhea, No Constipation, No Melena, No Hematochezia, No Other Genitourinary: No Dysuria, No Frequency, No Incontinence, No Hematuria, No Retention, No Other Musculoskeletal: No other, No neck pain, No shoulder pain, No arm pain, No back pain, No hand pain, No leg pain, No foot pain Skin: No Rash, No Lesions, No Jaundice, No Bruising, No Other Objective Vitals Vital Signs Date Time Temp Pulse Resp B/P (MAP) Pulse Ox O2 Delivery O2 Flow Rate FiO2 04/10/25 09:23 131/88 04/10/25 09:00 97.7 60 17 100 97.7 04/10/25 08:05 Room Air* 0 21 Intake/Output Intake and Output 04/10/25 07:00 Intake Total 2150 ml Output Total 1540 ml Balance 610 ml Intake Oral 1500 ml IV Total 650 ml Output Urine Total 1540 ml General Appearance: Alert, Oriented X3, Cooperative, No acute distress HEENT: Atraumatic, PERRLA Cardiovascular: Normal S1, Normal S2 Musculoskeletal: Normal sensory function, Normal motor function Skin: Dry, Intact Psych/Mental Status: Mental status NL, Mood NL Medications Current Medications Medications Dose Ordered Sig/Lex Route Start Time Stop Time Status Last Admin Dose Admin Sodium Chloride 1,000 ml @ 75 mls/hr [id number] IV 04/06/25 21:00 04/10/25 05:05 75 MLS/HR Ceftriaxone Sodium 50 ml @ 100 mls/hr DAILY@2100 IV 04/07/25 21:00 04/09/25 21:04 100 MLS/HR Amlodipine Besylate 10 mg DAILY PO 04/07/25 10:00 04/10/25 09:23 10 MG Metronidazole 100 ml @ 100 mls/hr Q8HR IV 04/07/25 06:00 04/10/25 05:25 100 MLS/HR Enoxaparin Sodium 70 mg DAILY SC 04/10/25 10:00 04/10/25 09:23 70 MG Laboratory Results Laboratory Tests 04/08/25 04:54 Urinalysis Test 04/08/25 12:52 Urine Color Yellow (Yellow) Urine Clarity Clear (Clear) Urine pH 6.5 (5.0-9.0) Urine Specific [place] 1.015 (1.001-1.035) Urine Protein 2+ (Negative) H Urine Ketones Trace (Negative) Urine Blood Negative /uL (Negative) Urine Nitrite Negative (Negative) Urine Bilirubin Negative (Negative) Urine Urobilinogen Normal mg/dL (Negative) Urine Leukocyte Esterase Negative /uL (Negative) Urine RBC 1 /hpf (0 - 3) Urine Microscopic WBC < 1 /HPF (0-3) Urine Squamous Epithelial Cells Few /hpf (<5) Urine Bacteria None seen /hpf (None Seen) Urine Creatinine 80.01 mg/dL (30.0-125.0) Urine Protein/Creatinine Ratio 1.87 Urine Sodium 119 mmol/L (40-220) Urine Glucose Normal mg/dL (Normal) Urine Total Protein 149.5 mg/dL (1-14) H Microbiology Microbiology Date/Time Source Procedure Growth Status 04/08/25 12:52 Voided Urine Urine Culture - Preliminary Resulted 04/06/25 16:34 Blood Blood Culture - Preliminary NO GROWTH AFTER 72 HOURS OF INCUBATION. Resulted Labs and/or images reviewed: Labs reviewed by me, Image(s) reviewed by me Assessment/Plan Assessment/Plan Impression: -questionable gastroenteritis -? Acute kidney injury, vasomotor nephropathy -history of coronary artery disease -lactic acidosis -nicotine dependence -metabolic encephalopathy Plan: Events: No events overnight. Discharged yesterday. SS assisting with DC of patient. -continue IV hydration -continue IV Flagyl -advanced to full liquid diet -repeat labs in a.m. Total time spent with patient discussing and formulating plan of care: 35 minutes. This medical document was created using an electronic medical record system with [employer] dictation system. Although this document has been carefully reviewed, there may still be some phonetic and typographical errors. These areas are purely typographical due to imperfections of the software programs, and do not reflect any compromise in the patient's medical care. Plan discussed with: Patient, Other (RN) My Orders Orders - LOIS PAL NP Procedure Category Date Status Time Discharge DISCHARGE 04/09/25 Transmitted 10:13 Date of Service: Apr 10, 2025 Billing Provider: LOIS PAL NP Common Visit Codes: [id number] INP/OBS CARE(MOD) LOIS PAL NP Apr 10, 2025 09:54
[2025-04-11] VITALS (7 sets, daily range): BP systolic 124–153; BP diastolic 67–91; PULSE 55–68; RESP 16–20; TEMP 96.9–98.6; O2SAT 98–100
--- NOTE | 2025-04-11 12:18 | DVHPN2 ---
Subjective Patient denies any symptoms at this time Reviewed: Care Plan, H&P, Labs, Medications Changes from previous H/P or p: No Changes General: Per HPI Eyes: No Pain, No Vision change, No Conjunctivae inflammation, No Eyelid inflammation, No Other, No Redness ENT: No Ear pain, No Ear discharge, No Nose pain, No Nose discharge, No Nose congestion, No Mouth pain, No Mouth swelling, No Throat pain, No Throat swelling, No Other Cardiovascular: No Chest Pain, No Palpitations, No Orthopnea, No Paroxysmal Noc. Dyspnea, No Edema, No Lt Headedness, No Other Respiratory: No Cough, No Dry, No Shortness of breath, No SOB with excertion, No Wheezing, No Hemoptysis, No Pleuritic Pain, No Sputum, No Other Gastrointestinal: No Nausea, No Vomiting, No Abdominal Pain, No Diarrhea, No Constipation, No Melena, No Hematochezia, No Other Genitourinary: No Dysuria, No Frequency, No Incontinence, No Hematuria, No Retention, No Other Musculoskeletal: No other, No neck pain, No shoulder pain, No arm pain, No back pain, No hand pain, No leg pain, No foot pain Skin: No Rash, No Lesions, No Jaundice, No Bruising, No Other Objective Vitals Vital Signs Date Time Temp Pulse Resp B/P (MAP) Pulse Ox O2 Delivery O2 Flow Rate FiO2 04/11/25 09:00 97.5 55 18 128/79 (95) 100 97.5 04/11/25 08:05 Room Air* 0 21 Intake/Output Intake and Output 04/11/25 07:00 Intake Total 2100 ml Output Total 1050 ml Balance 1050 ml Intake Oral 950 ml IV Total 1150 ml Output Urine Total 1050 ml # Voids 1 General Appearance: Alert, Oriented X3, Cooperative, No acute distress HEENT: Atraumatic, PERRLA Cardiovascular: Normal S1, Normal S2 Musculoskeletal: Normal sensory function, Normal motor function Skin: Dry, Intact Psych/Mental Status: Mental status NL, Mood NL Medications Current Medications Medications Dose Ordered Sig/Lex Route Start Time Stop Time Status Last Admin Dose Admin Amlodipine Besylate 10 mg DAILY PO 04/07/25 10:00 04/10/25 09:23 10 MG Laboratory Results Laboratory Tests 04/08/25 04:54 Urinalysis Test 04/08/25 12:52 Urine Color Yellow (Yellow) Urine Clarity Clear (Clear) Urine pH 6.5 (5.0-9.0) Urine Specific [place] 1.015 (1.001-1.035) Urine Protein 2+ (Negative) H Urine Ketones Trace (Negative) Urine Blood Negative /uL (Negative) Urine Nitrite Negative (Negative) Urine Bilirubin Negative (Negative) Urine Urobilinogen Normal mg/dL (Negative) Urine Leukocyte Esterase Negative /uL (Negative) Urine RBC 1 /hpf (0 - 3) Urine Microscopic WBC < 1 /HPF (0-3) Urine Squamous Epithelial Cells Few /hpf (<5) Urine Bacteria None seen /hpf (None Seen) Urine Creatinine 80.01 mg/dL (30.0-125.0) Urine Protein/Creatinine Ratio 1.87 Urine Sodium 119 mmol/L (40-220) Urine Glucose Normal mg/dL (Normal) Urine Total Protein 149.5 mg/dL (1-14) H Microbiology Microbiology Date/Time Source Procedure Growth Status 04/08/25 12:52 Voided Urine Urine Culture - Final Complete 04/06/25 16:34 Blood Blood Culture - Preliminary NO GROWTH AFTER 72 HOURS OF INCUBATION. Resulted Labs and/or images reviewed: Labs reviewed by me, Image(s) reviewed by me Assessment/Plan Assessment/Plan Impression: -questionable gastroenteritis -? Acute kidney injury, vasomotor nephropathy -history of coronary artery disease -lactic acidosis -nicotine dependence -metabolic encephalopathy Plan: Events: No events overnight. Discharged two days ago. Further discussion was made with the patient regarding his living situation. Apparently, he was living in a residential type of facility in [place], then transferred to a facility in the [facility]. Patient did not like the facility, at which point was brought to the hospital by an administrative body of that facility. Social service consultation has been placed for discharge assistance. DC IV fluids, antibiotics. Total time spent with patient discussing and formulating plan of care: 35 minutes. This medical document was created using an electronic medical record system with [employer] system. Although this document has been carefully reviewed, there may still be some phonetic and typographical errors. These areas are purely typographical due to imperfections of the software programs, and do not reflect any compromise in the patient's medical care. Plan discussed with: Patient, Other (RN) My Orders Orders - LOIS PAL DIGITAL CONTENT SPECIALIST Procedure Category Date Status Time Cardiac DIET 04/11/25 Transmitted Diet-2gna,Lofat,Lochol Lunch Date of Service: Apr 11, 2025 Billing Provider: LOIS PAL NP Common Visit Codes: [id number] INP/OBS CARE(MOD) LOIS PAL NP Apr 11, 2025 12:18
[2025-04-12 08:00] VITALS: RESP 16; O2SAT 100
[2025-04-12 09:00] VITALS: BP 143/80; PULSE 62; RESP 20; TEMP 97.5; O2SAT 98
[2025-04-12 13:00] VITALS: BP 142/74; PULSE 60; RESP 20; TEMP 97.6; O2SAT 99
--- NOTE | 2025-04-12 16:24 | DVHPN2 ---
Reviewed: Care Plan, H&P, Labs, Medications Changes from previous H/P or p: No Changes General: Per HPI Eyes: No Pain, No Vision change, No Conjunctivae inflammation, No Eyelid inflammation, No Other, No Redness ENT: No Ear pain, No Ear discharge, No Nose pain, No Nose discharge, No Nose congestion, No Mouth pain, No Mouth swelling, No Throat pain, No Throat swelling, No Other Cardiovascular: No Chest Pain, No Palpitations, No Orthopnea, No Paroxysmal Noc. Dyspnea, No Edema, No Lt Headedness, No Other Respiratory: No Cough, No Dry, No Shortness of breath, No SOB with excertion, No Wheezing, No Hemoptysis, No Pleuritic Pain, No Sputum, No Other Gastrointestinal: No Nausea, No Vomiting, No Abdominal Pain, No Diarrhea, No Constipation, No Melena, No Hematochezia, No Other Genitourinary: No Dysuria, No Frequency, No Incontinence, No Hematuria, No Retention, No Other Musculoskeletal: No other, No neck pain, No shoulder pain, No arm pain, No back pain, No hand pain, No leg pain, No foot pain Skin: No Rash, No Lesions, No Jaundice, No Bruising, No Other Objective Vitals Vital Signs Date Time Temp Pulse Resp B/P (MAP) Pulse Ox O2 Delivery O2 Flow Rate FiO2 04/12/25 13:00 97.6 60 20 142/74 (96) 99 97.6 04/12/25 08:00 Room Air* 0 21 Intake/Output Intake and Output 04/12/25 07:00 Intake Total 2740 ml Output Total 2700 ml Balance 40 ml Intake Oral 1940 ml IV Total 800 ml Output Urine Total 2700 ml # Bowel Movements 1 General Appearance: Alert, Oriented X3, Cooperative, No acute distress HEENT: Atraumatic, PERRLA Cardiovascular: Normal S1, Normal S2 Musculoskeletal: Normal sensory function, Normal motor function Skin: Dry, Intact Psych/Mental Status: Mental status NL, Mood NL Medications Current Medications Medications Dose Ordered Sig/Lex Route Start Time Stop Time Status Last Admin Dose Admin Amlodipine Besylate 10 mg DAILY PO 04/07/25 10:00 04/12/25 09:35 10 MG Apixaban 5 mg BID PO 04/12/25 22:00 Duloxetine HCl 60 mg DAILY PO 04/13/25 10:00 Gabapentin 300 mg BID PO 04/12/25 22:00 Lamotrigine 50 mg DAILY PO 04/13/25 10:00 Quetiapine Fumarate 50 mg HS PO 04/12/25 22:00 Laboratory Results Laboratory Tests 04/08/25 04:54 Urinalysis Test 04/08/25 12:52 Urine Color Yellow (Yellow) Urine Clarity Clear (Clear) Urine pH 6.5 (5.0-9.0) Urine Specific [place] 1.015 (1.001-1.035) Urine Protein 2+ (Negative) H Urine Ketones Trace (Negative) Urine Blood Negative /uL (Negative) Urine Nitrite Negative (Negative) Urine Bilirubin Negative (Negative) Urine Urobilinogen Normal mg/dL (Negative) Urine Leukocyte Esterase Negative /uL (Negative) Urine RBC 1 /hpf (0 - 3) Urine Microscopic WBC < 1 /HPF (0-3) Urine Squamous Epithelial Cells Few /hpf (<5) Urine Bacteria None seen /hpf (None Seen) Urine Creatinine 80.01 mg/dL (30.0-125.0) Urine Protein/Creatinine Ratio 1.87 Urine Sodium 119 mmol/L (40-220) Urine Glucose Normal mg/dL (Normal) Urine Total Protein 149.5 mg/dL (1-14) H Microbiology Microbiology Date/Time Source Procedure Growth Status 04/08/25 12:52 Voided Urine Urine Culture - Final Complete 04/06/25 16:34 Blood Blood Culture - Final NO GROWTH AFTER 5 DAYS OF INCUBATION. Complete Labs and/or images reviewed: Labs reviewed by me, Image(s) reviewed by me Assessment/Plan Assessment/Plan 04/11: Events: No events overnight. Discharged two days ago. Further discussion was made with the patient regarding his living situation. Apparently, he was living in a residential type of facility in [place], then transferred to a facility in the [facility]. Patient did not like the facility, at which point was brought to the hospital by an administrative body of that facility. Social service consultation has been placed for discharge assistance. DC IV fluids, antibiotics 04/12: patient wants his home meds. we will start until discpharge to [facility]. Impression: -questionable gastroenteritis -? Acute kidney injury, vasomotor nephropathy -history of coronary artery disease -lactic acidosis -nicotine dependence -metabolic encephalopathy Plan: continue discharge plan per primary hospitalist plan Total time spent with patient discussing and formulating plan of care: 35 minutes. Plan discussed with: Patient My Orders Orders - DOMENIC WOODY MD Procedure Category Date Status Time Apixaban (Eliquis) PHA 04/12/25 In Process 22:00 Duloxetine Hcl PHA 04/13/25 In Process Capsule (Cymbalta 10:00 Gabapentin Capsule PHA 04/12/25 In Process (Neurontin Capsule) 22:00 Lamotrigine Tablet PHA 04/13/25 In Process (Lamictal Tablet) 10:00 Quetiapine Fumarate PHA 04/12/25 In Process Tablet (Seroquel Tab 22:00 Date of Service: Apr 12, 2025 Billing Provider: DOMENIC WOODY MD Common Visit Codes: [id number] INP/OBS CARE(MOD) DOMENIC WOODY MD Apr 12, 2025 16:24
[2025-04-12 16:58] VITALS: BP 151/77; PULSE 62; RESP 21; TEMP 96.4; O2SAT 91
[2025-04-12 20:00] VITALS: RESP 16; O2SAT 99
[2025-04-12 21:00] VITALS: BP 130/88; PULSE 58; RESP 17; TEMP 97.9; O2SAT 98
[2025-04-12] MEDS: GABAPENTIN 300 MG CAP ONE (22:22)
[2025-04-12] MEDS: APIXABAN 5 MG TAB ONE (22:29)
[2025-04-12] MEDS: APIXABAN 5 MG TAB PO SCH (22:47)
[2025-04-12] MEDS: GABAPENTIN 300 MG CAP PO SCH (22:48)
[2025-04-13 05:00] VITALS: BP 111/78; PULSE 65; RESP 17; TEMP 97.7; O2SAT 98
[2025-04-13 08:00] VITALS: RESP 18; O2SAT 100
[2025-04-13 09:05] VITALS: BP 132/63; PULSE 65; RESP 21; TEMP 98.9; O2SAT 99
--- NOTE | 2025-04-13 10:35 | DVHPN2 ---
Reviewed: Care Plan, H&P, Labs, Medications Changes from previous H/P or p: No Changes General: Per HPI Eyes: No Pain, No Vision change, No Conjunctivae inflammation, No Eyelid inflammation, No Other, No Redness ENT: No Ear pain, No Ear discharge, No Nose pain, No Nose discharge, No Nose congestion, No Mouth pain, No Mouth swelling, No Throat pain, No Throat swelling, No Other Cardiovascular: No Chest Pain, No Palpitations, No Orthopnea, No Paroxysmal Noc. Dyspnea, No Edema, No Lt Headedness, No Other Respiratory: No Cough, No Dry, No Shortness of breath, No SOB with excertion, No Wheezing, No Hemoptysis, No Pleuritic Pain, No Sputum, No Other Gastrointestinal: No Nausea, No Vomiting, No Abdominal Pain, No Diarrhea, No Constipation, No Melena, No Hematochezia, No Other Genitourinary: No Dysuria, No Frequency, No Incontinence, No Hematuria, No Retention, No Other Musculoskeletal: No other, No neck pain, No shoulder pain, No arm pain, No back pain, No hand pain, No leg pain, No foot pain Skin: No Rash, No Lesions, No Jaundice, No Bruising, No Other Objective Vitals Vital Signs Date Time Temp Pulse Resp B/P (MAP) Pulse Ox O2 Delivery O2 Flow Rate FiO2 04/13/25 10:16 132/63 04/13/25 09:05 98.9 65 21 99 98.9 04/13/25 08:00 Room Air* 0 21 Intake/Output Intake and Output 04/13/25 07:00 Intake Total 1260 ml Output Total 600 ml Balance 660 ml Intake Oral 1260 ml Output Urine Total 600 ml # Voids 11 General Appearance: Alert, Oriented X3, Cooperative, No acute distress HEENT: Atraumatic, PERRLA Cardiovascular: Normal S1, Normal S2 Musculoskeletal: Normal sensory function, Normal motor function Skin: Dry, Intact Psych/Mental Status: Mental status NL, Mood NL Medications Current Medications Medications Dose Ordered Sig/Lex Route Start Time Stop Time Status Last Admin Dose Admin Amlodipine Besylate 10 mg DAILY PO 04/07/25 10:00 04/13/25 10:16 10 MG Apixaban 5 mg BID PO 04/12/25 22:00 04/13/25 10:16 5 MG Duloxetine HCl 60 mg DAILY PO 04/13/25 10:00 04/13/25 10:15 60 MG Gabapentin 300 mg BID PO 04/12/25 22:00 04/13/25 10:16 300 MG Lamotrigine 50 mg DAILY PO 04/13/25 10:00 Quetiapine Fumarate 50 mg HS PO 04/12/25 22:00 04/12/25 22:47 50 MG Laboratory Results Laboratory Tests 04/08/25 04:54 Urinalysis Test 04/08/25 12:52 Urine Color Yellow (Yellow) Urine Clarity Clear (Clear) Urine pH 6.5 (5.0-9.0) Urine Specific [place] 1.015 (1.001-1.035) Urine Protein 2+ (Negative) H Urine Ketones Trace (Negative) Urine Blood Negative /uL (Negative) Urine Nitrite Negative (Negative) Urine Bilirubin Negative (Negative) Urine Urobilinogen Normal mg/dL (Negative) Urine Leukocyte Esterase Negative /uL (Negative) Urine RBC 1 /hpf (0 - 3) Urine Microscopic WBC < 1 /HPF (0-3) Urine Squamous Epithelial Cells Few /hpf (<5) Urine Bacteria None seen /hpf (None Seen) Urine Creatinine 80.01 mg/dL (30.0-125.0) Urine Protein/Creatinine Ratio 1.87 Urine Sodium 119 mmol/L (40-220) Urine Glucose Normal mg/dL (Normal) Urine Total Protein 149.5 mg/dL (1-14) H Microbiology Microbiology Date/Time Source Procedure Growth Status 04/08/25 12:52 Voided Urine Urine Culture - Final Complete 04/06/25 16:34 Blood Blood Culture - Final NO GROWTH AFTER 5 DAYS OF INCUBATION. Complete Labs and/or images reviewed: Labs reviewed by me, Image(s) reviewed by me Assessment/Plan Assessment/Plan 04/11: Events: No events overnight. Discharged two days ago. Further discussion was made with the patient regarding his living situation. Apparently, he was living in a residential type of facility in [place], then transferred to a facility in the [facility]. Patient did not like the facility, at which point was brought to the hospital by an administrative body of that facility. Social service consultation has been placed for discharge assistance. DC IV fluids, antibiotics 04/12: patient wants his home meds. we will start until discpharge to [facility]. 11/23: Patient wants regular coffee with pink or yellow sugar. Patient wants to discuss his placement options and insurance/coverage. We will defer to primary neonatal social worker tomorrow. Impression: -questionable gastroenteritis -? Acute kidney injury, vasomotor nephropathy -history of coronary artery disease -lactic acidosis -nicotine dependence -metabolic encephalopathy Plan: continue discharge plan per primary hospitalist plan Total time spent with patient discussing and formulating plan of care: 35 minutes. Plan discussed with: Patient My Orders Orders - DOMENIC WOODY MD Procedure Category Date Status Time Apixaban (Eliquis) PHA 04/12/25 In Process 22:00 Duloxetine Hcl PHA 04/13/25 In Process Capsule (Cymbalta 10:00 Gabapentin Capsule PHA 04/12/25 In Process (Neurontin Capsule) 22:00 Lamotrigine Tablet PHA 04/13/25 In Process (Lamictal Tablet) 10:00 Quetiapine Fumarate PHA 04/12/25 In Process Tablet (Seroquel Tab 22:00 Date of Service: Apr 13, 2025 Billing Provider: DOMENIC WOODY MD Common Visit Codes: [id number] INP/OBS CARE(MOD) DOMENIC WOODY MD Apr 13, 2025 10:35
[2025-04-13] MEDS: lamoTRIgine 25 MG TAB PO SCH (12:32)
[2025-04-13 13:00] VITALS: BP 119/75; PULSE 50; RESP 20; TEMP 98; O2SAT 99
[2025-04-13 17:00] VITALS: BP 97/62; PULSE 53; RESP 22; TEMP 97.5; O2SAT 96
[2025-04-13] MEDS: GABAPENTIN 300 MG CAP ONE (18:00)
[2025-04-13] MEDS: APIXABAN 5 MG TAB ONE (18:00)
[2025-04-13 21:00] VITALS: BP 115/74; PULSE 65; RESP 17; TEMP 97.6; O2SAT 97
[2025-04-14] VITALS (8 sets, daily range): BP systolic 96–130; BP diastolic 55–85; PULSE 41–71; RESP 17–21; TEMP 96.7–99.7; O2SAT 93–98
--- NOTE | 2025-04-14 15:00 | DVHPN2 ---
Subjective Patient denies any symptoms at this time Reviewed: Care Plan, H&P, Labs, Medications Changes from previous H/P or p: No Changes General: Per HPI Eyes: No Pain, No Vision change, No Conjunctivae inflammation, No Eyelid inflammation, No Other, No Redness ENT: No Ear pain, No Ear discharge, No Nose pain, No Nose discharge, No Nose congestion, No Mouth pain, No Mouth swelling, No Throat pain, No Throat swelling, No Other Cardiovascular: No Chest Pain, No Palpitations, No Orthopnea, No Paroxysmal Noc. Dyspnea, No Edema, No Lt Headedness, No Other Respiratory: No Cough, No Dry, No Shortness of breath, No SOB with excertion, No Wheezing, No Hemoptysis, No Pleuritic Pain, No Sputum, No Other Gastrointestinal: No Nausea, No Vomiting, No Abdominal Pain, No Diarrhea, No Constipation, No Melena, No Hematochezia, No Other Genitourinary: No Dysuria, No Frequency, No Incontinence, No Hematuria, No Retention, No Other Musculoskeletal: No other, No neck pain, No shoulder pain, No arm pain, No back pain, No hand pain, No leg pain, No foot pain Skin: No Rash, No Lesions, No Jaundice, No Bruising, No Other Objective Vitals Vital Signs Date Time Temp Pulse Resp B/P (MAP) Pulse Ox O2 Delivery O2 Flow Rate FiO2 04/14/25 13:00 97.6 41 18 101/65 (77) 97 97.6 04/13/25 20:00 Room Air* 0 21 Intake/Output Intake and Output 04/14/25 07:00 Intake Total 1860 ml Output Total 1720 ml Balance 140 ml Intake Oral 1860 ml Output Urine Total 1720 ml # Voids 11 # Bowel Movements 1 General Appearance: Alert, Oriented X3, Cooperative, No acute distress HEENT: Atraumatic, PERRLA Cardiovascular: Normal S1, Normal S2 Musculoskeletal: Normal sensory function, Normal motor function Skin: Dry, Intact Psych/Mental Status: Mental status NL, Mood NL Medications Current Medications Medications Dose Ordered Sig/Lex Route Start Time Stop Time Status Last Admin Dose Admin Amlodipine Besylate 10 mg DAILY PO 04/07/25 10:00 04/14/25 10:20 10 MG Apixaban 5 mg BID PO 04/12/25 22:00 04/14/25 10:21 5 MG Duloxetine HCl 60 mg DAILY PO 04/13/25 10:00 04/14/25 10:18 60 MG Gabapentin 300 mg BID PO 04/12/25 22:00 04/14/25 10:21 300 MG Lamotrigine 50 mg DAILY PO 04/13/25 10:00 04/14/25 10:21 50 MG Quetiapine Fumarate 50 mg HS PO 04/12/25 22:00 04/13/25 21:50 50 MG Laboratory Results Laboratory Tests 04/08/25 04:54 Urinalysis Test 04/08/25 12:52 Urine Color Yellow (Yellow) Urine Clarity Clear (Clear) Urine pH 6.5 (5.0-9.0) Urine Specific [place] 1.015 (1.001-1.035) Urine Protein 2+ (Negative) H Urine Ketones Trace (Negative) Urine Blood Negative /uL (Negative) Urine Nitrite Negative (Negative) Urine Bilirubin Negative (Negative) Urine Urobilinogen Normal mg/dL (Negative) Urine Leukocyte Esterase Negative /uL (Negative) Urine RBC 1 /hpf (0 - 3) Urine Microscopic WBC < 1 /HPF (0-3) Urine Squamous Epithelial Cells Few /hpf (<5) Urine Bacteria None seen /hpf (None Seen) Urine Creatinine 80.01 mg/dL (30.0-125.0) Urine Protein/Creatinine Ratio 1.87 Urine Sodium 119 mmol/L (40-220) Urine Glucose Normal mg/dL (Normal) Urine Total Protein 149.5 mg/dL (1-14) H Microbiology Microbiology Date/Time Source Procedure Growth Status 04/08/25 12:52 Voided Urine Urine Culture - Final Complete 04/06/25 16:34 Blood Blood Culture - Final NO GROWTH AFTER 5 DAYS OF INCUBATION. Complete Labs and/or images reviewed: Labs reviewed by me, Image(s) reviewed by me Assessment/Plan Assessment/Plan Impression: -questionable gastroenteritis -? Acute kidney injury, vasomotor nephropathy -history of coronary artery disease -lactic acidosis -nicotine dependence -metabolic encephalopathy Plan: Events: No events overnight. Discharged two days ago. Further discussion was made with the patient regarding his living situation. Apparently, he was living in a residential type of facility in [place], then transferred to a facility in the [facility]. Patient did not like the facility, at which point was brought to the hospital by an administrative body of that facility. Social service consultation has been placed for discharge assistance. Total time spent with patient discussing and formulating plan of care: 35 minutes. This medical document was created using an electronic medical record system with [employer] dictation system. Although this document has been carefully reviewed, there may still be some phonetic and typographical errors. These areas are purely typographical due to imperfections of the software programs, and do not reflect any compromise in the patient's medical care. Plan discussed with: Patient, Other (RN) Date of Service: Apr 14, 2025 Billing Provider: LOIS PAL NP Common Visit Codes: [id number] INP/OBS CARE(HIGH) LOIS PAL NP Apr 14, 2025 15:00
[2025-04-15] VITALS (8 sets, daily range): BP systolic 101–124; BP diastolic 54–73; PULSE 60–75; RESP 15–18; TEMP 97.6–98.1; O2SAT 91–96
--- NOTE | 2025-04-15 12:32 | DVHPN2 ---
Subjective Patient denies any symptoms at this time Reviewed: Care Plan, H&P, Labs, Medications Changes from previous H/P or p: No Changes General: Per HPI Eyes: No Pain, No Vision change, No Conjunctivae inflammation, No Eyelid inflammation, No Other, No Redness ENT: No Ear pain, No Ear discharge, No Nose pain, No Nose discharge, No Nose congestion, No Mouth pain, No Mouth swelling, No Throat pain, No Throat swelling, No Other Cardiovascular: No Chest Pain, No Palpitations, No Orthopnea, No Paroxysmal Noc. Dyspnea, No Edema, No Lt Headedness, No Other Respiratory: No Cough, No Dry, No Shortness of breath, No SOB with excertion, No Wheezing, No Hemoptysis, No Pleuritic Pain, No Sputum, No Other Gastrointestinal: No Nausea, No Vomiting, No Abdominal Pain, No Diarrhea, No Constipation, No Melena, No Hematochezia, No Other Genitourinary: No Dysuria, No Frequency, No Incontinence, No Hematuria, No Retention, No Other Musculoskeletal: No other, No neck pain, No shoulder pain, No arm pain, No back pain, No hand pain, No leg pain, No foot pain Skin: No Rash, No Lesions, No Jaundice, No Bruising, No Other Objective Vitals Vital Signs Date Time Temp Pulse Resp B/P (MAP) Pulse Ox O2 Delivery O2 Flow Rate FiO2 04/15/25 10:03 106/63 04/15/25 08:32 98.1 65 15 91 98.1 04/15/25 08:00 Room Air* 0 21 Intake/Output Intake and Output 04/15/25 07:00 Intake Total 1650 ml Output Total 800 ml Balance 850 ml Intake Oral 1650 ml Output Urine Total 800 ml # Voids 1 General Appearance: Alert, Oriented X3, Cooperative, No acute distress HEENT: Atraumatic, PERRLA Cardiovascular: Normal S1, Normal S2 Musculoskeletal: Normal sensory function, Normal motor function Skin: Dry, Intact Psych/Mental Status: Mental status NL, Mood NL Medications Current Medications Medications Dose Ordered Sig/Lex Route Start Time Stop Time Status Last Admin Dose Admin Amlodipine Besylate 10 mg DAILY PO 04/07/25 10:00 04/15/25 10:03 10 MG Apixaban 5 mg BID PO 04/12/25 22:00 04/15/25 10:03 5 MG Duloxetine HCl 60 mg DAILY PO 04/13/25 10:00 04/15/25 10:04 60 MG Gabapentin 300 mg BID PO 04/12/25 22:00 04/15/25 10:05 300 MG Lamotrigine 50 mg DAILY PO 04/13/25 10:00 04/15/25 10:04 50 MG Quetiapine Fumarate 50 mg HS PO 04/12/25 22:00 04/14/25 22:04 50 MG Laboratory Results Laboratory Tests 04/08/25 04:54 Urinalysis Test 04/08/25 12:52 Urine Color Yellow (Yellow) Urine Clarity Clear (Clear) Urine pH 6.5 (5.0-9.0) Urine Specific [place] 1.015 (1.001-1.035) Urine Protein 2+ (Negative) H Urine Ketones Trace (Negative) Urine Blood Negative /uL (Negative) Urine Nitrite Negative (Negative) Urine Bilirubin Negative (Negative) Urine Urobilinogen Normal mg/dL (Negative) Urine Leukocyte Esterase Negative /uL (Negative) Urine RBC 1 /hpf (0 - 3) Urine Microscopic WBC < 1 /HPF (0-3) Urine Squamous Epithelial Cells Few /hpf (<5) Urine Bacteria None seen /hpf (None Seen) Urine Creatinine 80.01 mg/dL (30.0-125.0) Urine Protein/Creatinine Ratio 1.87 Urine Sodium 119 mmol/L (40-220) Urine Glucose Normal mg/dL (Normal) Urine Total Protein 149.5 mg/dL (1-14) H Microbiology Microbiology Date/Time Source Procedure Growth Status 04/08/25 12:52 Voided Urine Urine Culture - Final Complete 04/06/25 16:34 Blood Blood Culture - Final NO GROWTH AFTER 5 DAYS OF INCUBATION. Complete Labs and/or images reviewed: Labs reviewed by me, Image(s) reviewed by me Assessment/Plan Assessment/Plan Impression: -questionable gastroenteritis -? Acute kidney injury, vasomotor nephropathy -history of coronary artery disease -lactic acidosis -nicotine dependence -metabolic encephalopathy Plan: Events: No events overnight. Discharged two days ago. Further discussion was made with the patient regarding his living situation. Apparently, he was living in a residential type of facility in [place], then transferred to a facility in the [facility]. Patient did not like the facility, at which point was brought to the hospital by an administrative body of that facility. Social service consultation has been placed for discharge assistance. No change in A/P on 04/15/25 Total time spent with patient discussing and formulating plan of care: 35 minutes. This medical document was created using an electronic medical record system with [employer] dictation system. Although this document has been carefully reviewed, there may still be some phonetic and typographical errors. These areas are purely typographical due to imperfections of the software programs, and do not reflect any compromise in the patient's medical care. Plan discussed with: Patient, Other (RN) Date of Service: Apr 15, 2025 Billing Provider: LOIS PAL NP Common Visit Codes: [id number] INP/OBS CARE(MOD) LOIS PAL NP Apr 15, 2025 12:32
[2025-04-15] MEDS: ACETAMINOPHEN 325 MG TAB PO ONE (22:07)
[2025-04-16] VITALS (8 sets, daily range): BP systolic 104–123; BP diastolic 54–72; PULSE 50–64; RESP 16–18; TEMP 97.9–98.9; O2SAT 95–96
--- NOTE | 2025-04-16 10:39 | DVHPN2 ---
Subjective Patient denies any symptoms at this time Reviewed: Care Plan, H&P, Labs, Medications Changes from previous H/P or p: No Changes General: Per HPI Eyes: No Pain, No Vision change, No Conjunctivae inflammation, No Eyelid inflammation, No Other, No Redness ENT: No Ear pain, No Ear discharge, No Nose pain, No Nose discharge, No Nose congestion, No Mouth pain, No Mouth swelling, No Throat pain, No Throat swelling, No Other Cardiovascular: No Chest Pain, No Palpitations, No Orthopnea, No Paroxysmal Noc. Dyspnea, No Edema, No Lt Headedness, No Other Respiratory: No Cough, No Dry, No Shortness of breath, No SOB with excertion, No Wheezing, No Hemoptysis, No Pleuritic Pain, No Sputum, No Other Gastrointestinal: No Nausea, No Vomiting, No Abdominal Pain, No Diarrhea, No Constipation, No Melena, No Hematochezia, No Other Genitourinary: No Dysuria, No Frequency, No Incontinence, No Hematuria, No Retention, No Other Musculoskeletal: No other, No neck pain, No shoulder pain, No arm pain, No back pain, No hand pain, No leg pain, No foot pain Skin: No Rash, No Lesions, No Jaundice, No Bruising, No Other Objective Vitals Vital Signs Date Time Temp Pulse Resp B/P (MAP) Pulse Ox O2 Delivery O2 Flow Rate FiO2 04/16/25 08:56 98.5 52 16 116/70 (85) 96 98.5 04/16/25 07:50 Room Air* 0 21 Intake/Output Intake and Output 04/16/25 07:00 Intake Total 1150 ml Output Total 1400 ml Balance -250 ml Intake Oral 1150 ml Output Urine Total 1400 ml # Voids 1 General Appearance: Alert, Oriented X3, Cooperative, No acute distress HEENT: Atraumatic, PERRLA Cardiovascular: Normal S1, Normal S2 Genitourinary: No Apparent Abnormalities Musculoskeletal: Normal sensory function, Normal motor function Skin: Dry, Intact Psych/Mental Status: Mental status NL, Mood NL Medications Current Medications Medications Dose Ordered Sig/Lex Route Start Time Stop Time Status Last Admin Dose Admin Amlodipine Besylate 10 mg DAILY PO 04/07/25 10:00 04/16/25 08:53 10 MG Apixaban 5 mg BID PO 04/12/25 22:00 04/16/25 08:52 5 MG Duloxetine HCl 60 mg DAILY PO 04/13/25 10:00 04/16/25 08:52 60 MG Gabapentin 300 mg BID PO 04/12/25 22:00 04/16/25 08:52 300 MG Lamotrigine 50 mg DAILY PO 04/13/25 10:00 04/16/25 08:52 50 MG Quetiapine Fumarate 50 mg HS PO 04/12/25 22:00 04/15/25 22:06 50 MG Laboratory Results Laboratory Tests 04/08/25 04:54 Urinalysis Test 04/08/25 12:52 Urine Color Yellow (Yellow) Urine Clarity Clear (Clear) Urine pH 6.5 (5.0-9.0) Urine Specific [place] 1.015 (1.001-1.035) Urine Protein 2+ (Negative) H Urine Ketones Trace (Negative) Urine Blood Negative /uL (Negative) Urine Nitrite Negative (Negative) Urine Bilirubin Negative (Negative) Urine Urobilinogen Normal mg/dL (Negative) Urine Leukocyte Esterase Negative /uL (Negative) Urine RBC 1 /hpf (0 - 3) Urine Microscopic WBC < 1 /HPF (0-3) Urine Squamous Epithelial Cells Few /hpf (<5) Urine Bacteria None seen /hpf (None Seen) Urine Creatinine 80.01 mg/dL (30.0-125.0) Urine Protein/Creatinine Ratio 1.87 Urine Sodium 119 mmol/L (40-220) Urine Glucose Normal mg/dL (Normal) Urine Total Protein 149.5 mg/dL (1-14) H Microbiology Microbiology Date/Time Source Procedure Growth Status 04/08/25 12:52 Voided Urine Urine Culture - Final Complete 04/06/25 16:34 Blood Blood Culture - Final NO GROWTH AFTER 5 DAYS OF INCUBATION. Complete Assessment/Plan Assessment/Plan Impression: -questionable gastroenteritis -? Acute kidney injury, vasomotor nephropathy -history of coronary artery disease -lactic acidosis -nicotine dependence -metabolic encephalopathy Plan: Events: No events overnight. Discharged two days ago. Further discussion was made with the patient regarding his living situation. Apparently, he was living in a residential type of facility in [place], then transferred to a facility in the [facility]. Patient did not like the facility, at which point was brought to the hospital by an administrative body of that facility. Social service consultation has been placed for discharge assistance. No change in A/P on 04/16/25 Total time spent with patient discussing and formulating plan of care: 35 minutes. This medical document was created using an electronic medical record system with [employer] dictation system. Although this document has been carefully reviewed, there may still be some phonetic and typographical errors. These areas are purely typographical due to imperfections of the software programs, and do not reflect any compromise in the patient's medical care. Plan discussed with: Patient, Other (RN) Date of Service: Apr 16, 2025 Billing Provider: LOIS PAL NP Common Visit Codes: [id number] INP/OBS CARE(MOD) LOIS PAL NP Apr 16, 2025 10:39
--- NOTE | 2025-04-16 10:42 | DVHPN2 ---
Subjective Patient denies any symptoms at this time Reviewed: Care Plan, H&P, Labs, Medications Changes from previous H/P or p: No Changes General: Per HPI Eyes: No Pain, No Vision change, No Conjunctivae inflammation, No Eyelid inflammation, No Other, No Redness ENT: No Ear pain, No Ear discharge, No Nose pain, No Nose discharge, No Nose congestion, No Mouth pain, No Mouth swelling, No Throat pain, No Throat swelling, No Other Cardiovascular: No Chest Pain, No Palpitations, No Orthopnea, No Paroxysmal Noc. Dyspnea, No Edema, No Lt Headedness, No Other Respiratory: No Cough, No Dry, No Shortness of breath, No SOB with excertion, No Wheezing, No Hemoptysis, No Pleuritic Pain, No Sputum, No Other Gastrointestinal: No Nausea, No Vomiting, No Abdominal Pain, No Diarrhea, No Constipation, No Melena, No Hematochezia, No Other Genitourinary: No Dysuria, No Frequency, No Incontinence, No Hematuria, No Retention, No Other Musculoskeletal: No other, No neck pain, No shoulder pain, No arm pain, No back pain, No hand pain, No leg pain, No foot pain Skin: No Rash, No Lesions, No Jaundice, No Bruising, No Other Objective Vitals Vital Signs Date Time Temp Pulse Resp B/P (MAP) Pulse Ox O2 Delivery O2 Flow Rate FiO2 04/16/25 08:56 98.5 52 16 116/70 (85) 96 98.5 04/16/25 07:50 Room Air* 0 21 Intake/Output Intake and Output 04/16/25 07:00 Intake Total 1150 ml Output Total 1400 ml Balance -250 ml Intake Oral 1150 ml Output Urine Total 1400 ml # Voids 1 General Appearance: Alert, Oriented X3, Cooperative, No acute distress HEENT: Atraumatic, PERRLA Cardiovascular: Normal S1, Normal S2 Genitourinary: No Apparent Abnormalities Musculoskeletal: Normal sensory function, Normal motor function Skin: Dry, Intact Psych/Mental Status: Mental status NL, Mood NL Medications Current Medications Medications Dose Ordered Sig/Lex Route Start Time Stop Time Status Last Admin Dose Admin Amlodipine Besylate 10 mg DAILY PO 04/07/25 10:00 04/16/25 08:53 10 MG Apixaban 5 mg BID PO 04/12/25 22:00 04/16/25 08:52 5 MG Duloxetine HCl 60 mg DAILY PO 04/13/25 10:00 04/16/25 08:52 60 MG Gabapentin 300 mg BID PO 04/12/25 22:00 04/16/25 08:52 300 MG Lamotrigine 50 mg DAILY PO 04/13/25 10:00 04/16/25 08:52 50 MG Quetiapine Fumarate 50 mg HS PO 04/12/25 22:00 04/15/25 22:06 50 MG Laboratory Results Laboratory Tests 04/08/25 04:54 Urinalysis Test 04/08/25 12:52 Urine Color Yellow (Yellow) Urine Clarity Clear (Clear) Urine pH 6.5 (5.0-9.0) Urine Specific [place] 1.015 (1.001-1.035) Urine Protein 2+ (Negative) H Urine Ketones Trace (Negative) Urine Blood Negative /uL (Negative) Urine Nitrite Negative (Negative) Urine Bilirubin Negative (Negative) Urine Urobilinogen Normal mg/dL (Negative) Urine Leukocyte Esterase Negative /uL (Negative) Urine RBC 1 /hpf (0 - 3) Urine Microscopic WBC < 1 /HPF (0-3) Urine Squamous Epithelial Cells Few /hpf (<5) Urine Bacteria None seen /hpf (None Seen) Urine Creatinine 80.01 mg/dL (30.0-125.0) Urine Protein/Creatinine Ratio 1.87 Urine Sodium 119 mmol/L (40-220) Urine Glucose Normal mg/dL (Normal) Urine Total Protein 149.5 mg/dL (1-14) H Microbiology Microbiology Date/Time Source Procedure Growth Status 04/08/25 12:52 Voided Urine Urine Culture - Final Complete 04/06/25 16:34 Blood Blood Culture - Final NO GROWTH AFTER 5 DAYS OF INCUBATION. Complete Labs and/or images reviewed: Labs reviewed by me, Image(s) reviewed by me Assessment/Plan Assessment/Plan Impression: -questionable gastroenteritis -? Acute kidney injury, vasomotor nephropathy -history of coronary artery disease -lactic acidosis -nicotine dependence -metabolic encephalopathy Plan: Events: No events overnight. Discharged two days ago. Further discussion was made with the patient regarding his living situation. Apparently, he was living in a residential type of facility in [place], then transferred to a facility in the [facility]. Patient did not like the facility, at which point was brought to the hospital by an administrative body of that facility. Social service consultation has been placed for discharge assistance. No change in A/P on 04/16/25 Total time spent with patient discussing and formulating plan of care: 35 minutes. This medical document was created using an electronic medical record system with [employer] dictation system. Although this document has been carefully reviewed, there may still be some phonetic and typographical errors. These areas are purely typographical due to imperfections of the software programs, and do not reflect any compromise in the patient's medical care. Plan discussed with: Patient, Other (RN) Date of Service: Apr 16, 2025 Billing Provider: LOIS PAL NP Common Visit Codes: [id number] INP/OBS CARE(MOD) LOIS PAL NP Apr 16, 2025 10:42
[2025-04-17 05:00] VITALS: BP 105/64; PULSE 67; RESP 18; TEMP 98.8; O2SAT 96
[2025-04-17 08:28] VITALS: BP 117/61; PULSE 51; RESP 18; TEMP 98.4; O2SAT 93
--- NOTE | 2025-04-17 11:24 | DVHPN2 ---
Reviewed: Care Plan, H&P, Labs, Medications Changes from previous H/P or p: No Changes General: Per HPI Eyes: No Pain, No Vision change, No Conjunctivae inflammation, No Eyelid inflammation, No Other, No Redness ENT: No Ear pain, No Ear discharge, No Nose pain, No Nose discharge, No Nose congestion, No Mouth pain, No Mouth swelling, No Throat pain, No Throat swelling, No Other Cardiovascular: No Chest Pain, No Palpitations, No Orthopnea, No Paroxysmal Noc. Dyspnea, No Edema, No Lt Headedness, No Other Respiratory: No Cough, No Dry, No Shortness of breath, No SOB with excertion, No Wheezing, No Hemoptysis, No Pleuritic Pain, No Sputum, No Other Gastrointestinal: No Nausea, No Vomiting, No Abdominal Pain, No Diarrhea, No Constipation, No Melena, No Hematochezia, No Other Genitourinary: No Dysuria, No Frequency, No Incontinence, No Hematuria, No Retention, No Other Musculoskeletal: No other, No neck pain, No shoulder pain, No arm pain, No back pain, No hand pain, No leg pain, No foot pain Skin: No Rash, No Lesions, No Jaundice, No Bruising, No Other Objective Vitals Vital Signs Date Time Temp Pulse Resp B/P (MAP) Pulse Ox O2 Delivery O2 Flow Rate FiO2 04/17/25 09:49 117/61 04/17/25 08:28 98.4 51 18 93 98.4 04/16/25 19:57 Room Air* 0 21 Intake/Output Intake and Output 04/17/25 07:00 Intake Total 1490 ml Balance 1490 ml Intake Oral 1490 ml # Voids 3 General Appearance: Alert, Oriented X3, Cooperative, No acute distress HEENT: Atraumatic, PERRLA Cardiovascular: Normal S1, Normal S2 Genitourinary: No Apparent Abnormalities Musculoskeletal: Normal sensory function, Normal motor function Skin: Dry, Intact Psych/Mental Status: Mental status NL, Mood NL Medications Current Medications Medications Dose Ordered Sig/Lex Route Start Time Stop Time Status Last Admin Dose Admin Amlodipine Besylate 10 mg DAILY PO 04/07/25 10:00 04/17/25 09:49 10 MG Apixaban 5 mg BID PO 04/12/25 22:00 04/17/25 09:48 5 MG Duloxetine HCl 60 mg DAILY PO 04/13/25 10:00 04/17/25 09:49 60 MG Gabapentin 300 mg BID PO 04/12/25 22:00 04/17/25 09:49 300 MG Lamotrigine 50 mg DAILY PO 04/13/25 10:00 04/17/25 09:48 50 MG Quetiapine Fumarate 50 mg HS PO 04/12/25 22:00 04/16/25 21:31 50 MG Laboratory Results Laboratory Tests 04/08/25 04:54 Urinalysis Test 04/08/25 12:52 Urine Color Yellow (Yellow) Urine Clarity Clear (Clear) Urine pH 6.5 (5.0-9.0) Urine Specific [place] 1.015 (1.001-1.035) Urine Protein 2+ (Negative) H Urine Ketones Trace (Negative) Urine Blood Negative /uL (Negative) Urine Nitrite Negative (Negative) Urine Bilirubin Negative (Negative) Urine Urobilinogen Normal mg/dL (Negative) Urine Leukocyte Esterase Negative /uL (Negative) Urine RBC 1 /hpf (0 - 3) Urine Microscopic WBC < 1 /HPF (0-3) Urine Squamous Epithelial Cells Few /hpf (<5) Urine Bacteria None seen /hpf (None Seen) Urine Creatinine 80.01 mg/dL (30.0-125.0) Urine Protein/Creatinine Ratio 1.87 Urine Sodium 119 mmol/L (40-220) Urine Glucose Normal mg/dL (Normal) Urine Total Protein 149.5 mg/dL (1-14) H Microbiology Microbiology Date/Time Source Procedure Growth Status 04/08/25 12:52 Voided Urine Urine Culture - Final Complete 04/06/25 16:34 Blood Blood Culture - Final NO GROWTH AFTER 5 DAYS OF INCUBATION. Complete Labs and/or images reviewed: Labs reviewed by me, Image(s) reviewed by me Assessment/Plan Assessment/Plan Complicated cystitis questionable gastroenteritis - probable Acute kidney injury, vasomotor nephropathy -CKD stage 3b -history of coronary artery disease -lactic acidosis -nicotine dependence -metabolic encephalopathy Plan discussed with: Patient Date of Service: Apr 17, 2025 Billing Provider: DILMA FRAZIER MD Common Visit Codes: [id number] INP/OBS CARE(HIGH) DILMA FRAZIER MD Apr 17, 2025 11:24
[2025-04-17 12:28] VITALS: BP 124/63; PULSE 60; RESP 20; TEMP 98.5; O2SAT 96
[2025-04-17 16:56] VITALS: BP 114/63; PULSE 64; RESP 20; TEMP 99.2; O2SAT 93
[2025-04-17 21:00] VITALS: BP 112/60; PULSE 57; RESP 19; TEMP 98.1; O2SAT 97
[2025-04-18 01:15] VITALS: BP 113/62; PULSE 60; RESP 20; TEMP 98; O2SAT 95
[2025-04-18 05:22] VITALS: BP 105/67; PULSE 64; RESP 19; TEMP 98.8; O2SAT 93
[2025-04-18 09:00] VITALS: BP 107/64; PULSE 58; RESP 17; TEMP 98.7; O2SAT 92
[2025-04-18] MEDS: CIPROFLOXACIN HCL 500 MG TAB PO SCH (10:22)
[2025-04-18] MEDS ORDERED: INFLUENZA TRIVALENT 2024-2025 0.5 ML INJ IM ONE (10:30)
[2025-04-18 13:00] VITALS: BP 117/66; PULSE 61; RESP 18; TEMP 99; O2SAT 96
== END 2025-04-18 14:20 | DRG 91 ==
LOC: ER 15:32 → OVERFLOW 20:38 → CENTRAL 04-07 18:48
PROVIDERS: ADMIT Nurse Practitioner Acute Care; ATTEND Nurse Practitioner Acute Care
DX: G92.8 Other toxic encephalopathy (principal); N17.0 Acute kidney failure with tubular necrosis; E87.20 Acidosis, unspecified; G20.A1 Parkinson's disease without dyskinesia, without mention of fluctuations; N30.90 Cystitis, unspecified without hematuria; N18.32 Chronic kidney disease, stage 3b; I12.9 Hypertensive chronic kidney disease with stage 1 through stage 4 chronic kidney disease, or unspecified chronic kidney disease; I48.20 Chronic atrial fibrillation, unspecified; D68.69 Other thrombophilia; Z20.822 Contact with and (suspected) exposure to COVID-19; K80.20 Calculus of gallbladder without cholecystitis without obstruction; F17.200 Nicotine dependence, unspecified, uncomplicated; I25.10 Atherosclerotic heart disease of native coronary artery without angina pectoris; K52.9 Noninfective gastroenteritis and colitis, unspecified; Z79.899 Other long term (current) drug therapy
CPT/HCPCS: 36415; 70450; 71045; 71250; 74176; 76775; 80048; 80076; 80307; 80320; 81001; 82140; 82306; 82378; 82570; 82607; 83036; 83605; 83880; 84156; 84300; 84443; 84484; 85025; 85610; 85730; 86301; 87040; 87086; 87426; 87804; 90656; 93005; 93306; 96365; 96375; 97163; G0378; J2405; J3490